=== PATIENT | male | born 1990 | race African-American/Black ===

== ENCOUNTER 2022-05-06 20:40 | Inpatient (IN) | payer MEDICARE, SELFPAY ==
[2022-05-06 21:30] VITALS: BP 113/60; PULSE 72; TEMP 36.8; O2SAT 97
--- NOTE | 2022-05-06 23:08 | PC.ADMIT ---
Patient is a 31 year old single Azeri speaking black male, admitted as a CV admission to after arriving via ambulance from [facility] ED. Patient was evaluated at [facility], medically cleared and deemed in need of IPLOC secondary to homelessness, AH and being off medications for some time. Patient told this mortgage underwriter that he had run out of money and needed to get help so he had the credit card control clerk at the hotel call EMS. Patient said that he has been at [facility] for psychiatric admission but never been on or [facility] [place] health. Patient was somewhat guarded during the admission process and said he was not having any AH, VH, SI or HI. He did sign legals. Safety tool and treatment plan were done and need to be signed. Patient ate a sandwich and chips and went to bed. Orders received.
[2022-05-07 06:00] VITALS: BP 110/59; PULSE 65; RESP 18; TEMP 36.4; O2SAT 99
[2022-05-07 09:23] LABS: Alanine Aminotransferase 15 U/L (0-40); Albumin Level 4.4 g/dL (3.5-5.0); Alkaline Phosphatase 94 U/L (39-117); Anion Gap 11 (12-20); Aspartate Amino Transferase 18 U/L (5-37); Bilirubin Total 0.5 mg/dL (0.0-1.0); Blood Urea Nitrogen 9 mg/dL (9-16); Calcium 9.6 mg/dL (8.4-10.2); Carbon Dioxide 28 mmol/L (22-29); Chloride 106 mmol/L (96-108); Cholesterol 182 mg/dL; Creatinine Clr Calc Pharmacy 139.3; Estimated Glomerular Filt Rate > 60; Glucose Fasting 90 mg/dL (60-99); HDL Cholesterol 35 mg/dL; LDL Cholesterol Calculated 125 mg/dl; Potassium 4.4 mmol/L (3.3-5.1); Sodium 141 mmol/L (135-145); Total Protein 7.6 g/dL (6.5-8.0); Triglycerides 112 mg/dL
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
--- NOTE | 2022-05-07 17:20 | HO.PM.IMCN ---
History of Present Illness Data of Consult Service Date: 05/07/22 Primary Care Provider: None Physician HPI Reason for consult: Admission H&P Pt is a 31-year-old male with a PMH significant for schizophrenia and substance abuse seen for admission history and physical to M5 unit. Not on any known prescription medical medications. Pt refused to be interviewed and examined, saying I'm good and I've already spoken to enough physicians. Pt would not even allow heart and lungs to be auscultated. No known acute concerns at this time. Pt knows to report if he has any acute medical complaints. Review of Systems Review of Systems: Unable to obtain due to patient's refusal of H&P. [facility] Social History Household Members: None Housing: Homeless Do you presently have visiting nurse or other home services: No Patient Tobacco Use Status: Current everyday Tobacco user Tobacco use type: Cigarette Cigarette Packs Per Day: 0.25 Cigarettes Per Day: 5.0 Years Smoked: 20 Smoked in Last 30 Days: Yes e-Cigarette/Vaping Use: Currently Using Frequency of e-Cigarette/Vaping Use: occasionally Patient Interested in Nicotine Replacement: Yes Patient Given Instructions on How to Stop Smoking: Yes Date Education Initiated: 05/06/22 Second Hand Smoke Exposure: Yes Use of substances other than those prescribed or required for medical reasons: Yes Substance Use Type: Crack/Cocaine and Caffiene Substance Use Frequency: Socially Last Used Substance: Just Prior to Admission Currently Displaying Signs/Symptoms of Drug Intoxication Withdrawal: No Any prior treatment program specific to substance use: No Have you been hit, kicked, punched, or otherwise hurt by someone within the past year? If so, by whom?: No Do you feel safe in your current relationship?: No Current Relationship Is there a partner from a previous relationship who is making you feel unsafe now?: No Are you made to feel afraid or neglected: No Spiritual Healthcare Practices: none Episcopalian Healthcare Practices: none Cultural Healthcare Practices: none Advance Directives: No Advance Directives Information Provided: No Do you have thoughts of harming others: None Do you have a plan to hurt others: No Plan Recently lost weight without trying: No Nutrition Risks: No Nutritional Risk Meds Allergies Allergy/AdvReac Type Severity Reaction Status Date / Time Unable to Assess Allergy Unverified 05/06/22 22:34 Active Medications: Current Medications Acetaminophen (Acetaminophen 325 Mg Tablet) 650 mg PO Q6H PRN PRN Reason: Headache/Pain Mild Scale (1-3) Al Hydroxide/Mg Hydroxide (Magnesium Hydrox/Alum Hydrox 30 Ml Oral.Susp) 30 ml PO Q6H PRN PRN Reason: Heartburn/Nausea Aripiprazole (Aripiprazole 5 Mg Tablet) 5 mg PO BEDTIME JOVANNY Hydroxyzine HCl (Hydroxyzine Hcl 25 Mg Tablet) 25 mg PO Q6H PRN PRN Reason: Anxiety Magnesium Hydroxide (Milk Of Magnesia 30 Ml Oral.Susp) 30 ml PO DAILY PRN PRN Reason: Constipation Nicotine Polacrilex (Nicotine Polacrilex 2 Mg Gum) 4 mg BUCCAL Q2H PRN PRN Reason: Nicotine Cravings Trazodone HCl (Trazodone Hcl 50 Mg Tablet) 50 mg PO BEDTIME MRX1 PRN PRN Reason: Insomnia Physical Exam Vital Signs and Narrative: Vital Signs: Last Vital Signs Temp 97.6 F 05/07/22 06:00 Pulse 65 05/07/22 06:00 Resp 18 05/07/22 06:00 BP 110/59 L 05/07/22 06:00 Pulse Ox 99 05/07/22 06:00 O2 Del Method 05/07/22 06:00 BMI result Body Mass Index 0.1 Pt refused examination. Results Labs 05/07/22 08:46 Labs: Laboratory Results - last 24 hr 05/07/22 08:46 Anion Gap 11 L Estim Creat Clear Calc 139.3 Estimated GFR > 60 Fasting Glucose 90 Calcium 9.6 Total Bilirubin 0.5 AST 18 ALT 15 Alkaline Phosphatase 94 Total Protein 7.6 Albumin 4.4 Triglycerides 112 Cholesterol 182 LDL Cholesterol, Calc 125 HDL Cholesterol 35 Assessment and Plan (1) Routine history and physical examination of adult: Status: Acute Plan Pt is a 31-year-old male with a PMH significant for schizophrenia and substance abuse seen for admission history and physical to M5 unit. Not on any known prescription medical medications. Pt refused to be interviewed and examined, saying I'm good and I've already spoken to enough physicians. Pt would not even allow heart and lungs to be auscultated. No known acute concerns at this time. Pt knows to report if he has any acute medical complaints. Thank you for allowing us to participate in the care of this pt. Signing off at this time. Please let us know if there are any acute concerns or questions. Time Spent With Patient Time: Total time managing care of this patient today ____ minutes.
[2022-05-07 18:00] VITALS: BP 122/76; PULSE 85; RESP 16; TEMP 36.4; O2SAT 98
[2022-05-07] MEDS: ARIPiprazole 5 MG TABLET PO (21:02)
[2022-05-08 09:31] VITALS: BP 111/57; PULSE 74; RESP 18; TEMP 36.7; O2SAT 98
--- NOTE | 2022-05-08 12:05 | P.PNPSI_ITS ---
Subjective Subjective Date of Service: 05/08/22 Reason For Visit: Unspecified schizophrenia Interim History: Patient seen. Per nursing, he is isolative, guarded and responding to internal s timuli. When meeting with this database report writer, he appeared guarded and irritable. He said that I am getting some rest and would like to get some rest right now. He was guarded and preoccupied and appeared to be internally stimulated. Review of Systems Review of Systems Unable to obtain due to patient's refusal of H&P. Mental Status Exam Mental Status Exam Narrative: dressed in hospital attire. disheveled. cooperative to his ability. no PMA/PMR. speech decr in amount, incr rate, nml loudness, nml latency. thoughts disorganized, confabulating. affect constricted, normo-intense, non-labile. mood pretty fair. denies SI/SIBI/HI/AVH. Diagnostics Vital Signs (24Hr): Vital Signs - 24 hr 05/08/22 09:31 Temperature 98.0 F Pulse Rate 74 Respiratory Rate 18 Blood Pressure 111/57 L Pulse Oximetry 98 Oxygen Delivery Method Room Air BMI result Body Mass Index 0.1 Labs 05/07/22 08:46 Labs: Laboratory Results - last 48 hr 05/07/22 08:46 Sodium 141 Potassium 4.4 Chloride 106 Carbon Dioxide 28 Anion Gap 11 L BUN 9 Creatinine 0.80 Estim Creat Clear Calc 139.3 Estimated GFR > 60 Fasting Glucose 90 Calcium 9.6 Total Bilirubin 0.5 AST 18 ALT 15 Alkaline Phosphatase 94 Total Protein 7.6 Albumin 4.4 Triglycerides 112 Cholesterol 182 LDL Cholesterol, Calc 125 HDL Cholesterol 35 Medications Medications Current Medications Acetaminophen (Acetaminophen 325 Mg Tablet) 650 mg PO Q6H PRN PRN Reason: Headache/Pain Mild Scale (1-3) Al Hydroxide/Mg Hydroxide (Magnesium Hydrox/Alum Hydrox 30 Ml Oral.Susp) 30 ml PO Q6H PRN PRN Reason: Heartburn/Nausea Aripiprazole (Aripiprazole 5 Mg Tablet) 5 mg PO BEDTIME JOVANNY Last Admin: 05/07/22 21:02 Dose: 5 mg Hydroxyzine HCl (Hydroxyzine Hcl 25 Mg Tablet) 25 mg PO Q6H PRN PRN Reason: Anxiety Magnesium Hydroxide (Milk Of Magnesia 30 Ml Oral.Susp) 30 ml PO DAILY PRN PRN Reason: Constipation Nicotine Polacrilex (Nicotine Polacrilex 2 Mg Gum) 4 mg BUCCAL Q2H PRN PRN Reason: Nicotine Cravings Trazodone HCl (Trazodone Hcl 50 Mg Tablet) 50 mg PO BEDTIME MRX1 PRN PRN Reason: Insomnia Allergies Allergies Allergy/AdvReac Type Severity Reaction Status Date / Time Unable to Assess Allergy Unverified 05/06/22 22:34 Assessment & Plan Assessment & Plan (1) Schizophrenia, paranoid type: Status: Acute Code(s): F20.0 - Paranoid schizophrenia Plan Increase Abilify to 10 mg daily. Reason for contiued inpatient stay Substantial Risk for: inability to function and rapid decompensation Time Spent With Patient Time: Total time managing care of this patient today ____ minutes.
[2022-05-08 19:10] VITALS: BP 125/71; PULSE 80; TEMP 37.1; O2SAT 98
[2022-05-08] MEDS: ARIPiprazole 5 MG TABLET PO (20:47)
--- NOTE | 2022-05-09 11:20 | HO.PSYCHPN ---
Subjective Subjective Date of Service: 05/09/22 Reason For Visit: Unspecified schizophrenia Interim History: Patient seen. Per nursing, he is isolative, guarded and responding to internal stimuli. When meeting with this production underwriter, he appeared guarded. He says he wants to go home and that he feels fine. He was guarded and preoccupied and appeared to be internally stimulated. Review of Systems Review of Systems Unable to obtain due to patient's refusal of H&P. Mental Status Exam Mental Status Exam Narrative: dressed in hospital attire. disheveled. cooperative to his ability. no PMA/PMR. speech decr in amount, incr rate, nml loudness, nml latency. thoughts disorganized, confabulating. affect constricted, normo-intense, non-labile. mood pretty fair. denies SI/SIBI/HI/AVH. Diagnostics Vital Signs (24Hr): Vital Signs - 24 hr 05/09/22 12:30 05/09/22 16:20 Temperature 98.5 F 97.8 F Pulse Rate 79 79 Respiratory Rate 18 Blood Pressure 135/73 114/64 Pulse Oximetry 96 98 Oxygen Delivery Method Room Air Room Air BMI result Body Mass Index 0.1 Labs 05/07/22 08:46 Medications Medications Current Medications Acetaminophen (Acetaminophen 325 Mg Tablet) 650 mg PO Q6H PRN PRN Reason: Headache/Pain Mild Scale (1-3) Al Hydroxide/Mg Hydroxide (Magnesium Hydrox/Alum Hydrox 30 Ml Oral.Susp) 30 ml PO Q6H PRN PRN Reason: Heartburn/Nausea Aripiprazole (Aripiprazole 10 Mg Tablet) 10 mg PO BEDTIME JOVANNY Last Admin: 05/09/22 20:03 Dose: 10 mg Hydroxyzine HCl (Hydroxyzine Hcl 25 Mg Tablet) 25 mg PO Q6H PRN PRN Reason: Anxiety Magnesium Hydroxide (Milk Of Magnesia 30 Ml Oral.Susp) 30 ml PO DAILY PRN PRN Reason: Constipation Nicotine Polacrilex (Nicotine Polacrilex 2 Mg Gum) 4 mg BUCCAL Q2H PRN PRN Reason: Nicotine Cravings Trazodone HCl (Trazodone Hcl 50 Mg Tablet) 50 mg PO BEDTIME MRX1 PRN PRN Reason: Insomnia Allergies Allergies Allergy/AdvReac Type Severity Reaction Status Date / Time Unable to Assess Allergy Unverified 05/06/22 22:34 Assessment & Plan Assessment & Plan (1) Schizophrenia, paranoid type: Status: Acute Code(s): F20.0 - Paranoid schizophrenia Plan Increase Abilify to 10 mg daily. Reason for contiued inpatient stay Substantial Risk for: inability to function and rapid decompensation Time Spent With Patient Time: Total time managing care of this patient today ____ minutes.
[2022-05-09 12:30] VITALS: BP 135/73; PULSE 79; RESP 18; TEMP 36.9; O2SAT 96
[2022-05-09 16:20] VITALS: BP 114/64; PULSE 79; TEMP 36.6; O2SAT 98
[2022-05-09] MEDS: ARIPiprazole 10 MG TABLET PO (20:03)
[2022-05-10 08:44] VITALS: BP 122/81; PULSE 68; RESP 18; TEMP 36.7; O2SAT 98
--- NOTE | 2022-05-10 10:12 | HO.PSYCHPN ---
Subjective Subjective Date of Service: 05/10/22 Reason For Visit: Unspecified schizophrenia Interim History: Met with patient; discussed in team; reviewed admitting/progress notes from weekend Patient reports that he is feeling better and that since getting on Abilify, the auditory hallucinations have been lessened and he is more able to ignore it. He says he has a history of auditory hallucinations that come and go but get worse if he is upset; he says talking also helps. Currently he reports he is sleeping well, eating decent and would like to discharge. He does not want to talk about where he is going to go other than to mention a care home. [employer] discussed with him long-acting Abilify but he declines. He says he takes his medications for while but eventually feels he does not need and stops taking them. Discussed substance abuse history and patient says he does not do cocaine very often but he agrees it does make symptoms worse. Mental Status Exam Mental Status Exam Narrative: Pt is alert and oriented; behavior is cooperative, friendly and calm; mildly disorganized in that he will talk to himself while walking on the halls; patient is not in distress; dressed in hospital attire with unkempt hair and marginal hygiene; mood is described as good...ok and affect congruent; eye contact appropriate; Speech is normal rate, volume and prosody and not pressured; no psychomotor agitation/retardation present; thought process is overall organized and goal directed; Thought content is on discharge; otherwise pertinent to relevant topics and without any delusional content, paranoid ideations or grandiosity; denies any SI/HI. There is no evidence of perceptual disturbance. Patients insight and judgment are impaired, but improved, adequate and likely at baseline Diagnostics Vital Signs (24Hr): Vital Signs - 24 hr 05/09/22 12:30 05/09/22 16:20 05/10/22 08:44 Temperature 98.5 F 97.8 F 98.1 F Pulse Rate 79 79 68 Respiratory Rate 18 18 Blood Pressure 135/73 114/64 122/81 Pulse Oximetry 96 98 98 Oxygen Delivery Method Room Air Room Air Room Air BMI result Body Mass Index 0.1 Labs 05/07/22 08:46 Medications Medications Current Medications Acetaminophen (Acetaminophen 325 Mg Tablet) 650 mg PO Q6H PRN PRN Reason: Headache/Pain Mild Scale (1-3) Al Hydroxide/Mg Hydroxide (Magnesium Hydrox/Alum Hydrox 30 Ml Oral.Susp) 30 ml PO Q6H PRN PRN Reason: Heartburn/Nausea Aripiprazole (Aripiprazole 10 Mg Tablet) 10 mg PO BEDTIME JOVANNY Last Admin: 05/09/22 20:03 Dose: 10 mg Hydroxyzine HCl (Hydroxyzine Hcl 25 Mg Tablet) 25 mg PO Q6H PRN PRN Reason: Anxiety Magnesium Hydroxide (Milk Of Magnesia 30 Ml Oral.Susp) 30 ml PO DAILY PRN PRN Reason: Constipation Nicotine Polacrilex (Nicotine Polacrilex 2 Mg Gum) 4 mg BUCCAL Q2H PRN PRN Reason: Nicotine Cravings Trazodone HCl (Trazodone Hcl 50 Mg Tablet) 50 mg PO BEDTIME MRX1 PRN PRN Reason: Insomnia Allergies Allergies Allergy/AdvReac Type Severity Reaction Status Date / Time Unable to Assess Allergy Unverified 05/06/22 22:34 Assessment & Plan Assessment & Plan (1) Schizophrenia, paranoid type: Status: Acute Code(s): F20.0 - Paranoid schizophrenia Plan per [facility] psychiatry note, pt presented to a hotel outpatient receptionist desk and requested they call EMS for him, which they did.? EMS brought him to the hospital, where he c/o AH.? he was noted to be vague and disorganized, unable to elaborate on his complaints.? per [facility] staff, pt is known to them and has long h/o schizophrenia and poor medication compliance.? he is reportedly homeless.? on interview with MD on unit he is calm and cooperative, to his ability.? he does appear suspicious and is reticent to answer some questions.? his answers to other questions make his formal thought disorder clear and suggest an inability to fully collaborate even if he were willing.? notable things pt stated to this designer writer: I eat food; i'm familiar with aspirin being itself. ? some discussion was able to be had regarding his Dx and medication Hx.? he reported having some experience with abilify and zyprexa.? MD recommended he take one of them or similar, and pt reluctantly agreed, stating he would take abilify.? he agreed to start with 5 mg tonight with expectation of titration to likely somewhere in the 20-30 mg daily range.? on being told his utox is cocaine POS, he responded, coca cola, and then, your utox was cocaine positive, and finally, my detox... it's definitely legal. ? he acknowledged only the use of tobacco, denied any safety issues, and was too disorganized to collaborate in much depth or detail. Past Psychiatric History: hosps: pt reports 2 prior.? on being asked about his most recent, he replies, concurrent. SA: denies SIB: denies Hospital course: 05/10, patient reports symptoms have significantly improved and that AH is lessened and tolerable; mood has improved. Patient is asking for discharge and says I would like to be on my way. He says he will take his medication for a little while but that he usually goes off it eventually. Patient is likely at or near baseline; Will continue to monitor patient and if he remains stable will likely proceed with discharge. PLAN: CV Q 15 minute checks Continue Abilify to 10 mg daily (started on admission; discussed with patient who says that this medication has helped in the past) Patient educated on: diagnosis, medication risk/benefits and substance abuse Informed Consent: understands and further education needed Reason for contiued inpatient stay Substantial Risk for: rapid decompensation Time Spent With Patient Time: Total time managing care of this patient today ____ minutes.
[2022-05-11 08:56] VITALS: BP 128/81; PULSE 73; RESP 18; TEMP 36.6; O2SAT 99
--- NOTE | 2022-05-11 10:13 | P.PNPSI_ITS ---
Subjective Subjective Date of Service: 05/11/22 Reason For Visit: Unspecified schizophrenia Interim History: met with pt; discussed in teams; reviewed notes from [facility] ED (which reported patient asked for help and self presented for treatment for auditory hallucinations, was disorganized) Patient reports that auditory hallucinations remain mostly resolved and otherwise he is able to ignore them. He feels his mood is good-okay and denies any SI or HI. Patient signed 3 day notice; wants to discharge tomorrow. Patient is organized in speech with linear thought process; remains internally preoccupied but otherwise his with organized behavior. Patient says he will continue taking Abilify on discharge. Otherwise no complaints and no requests; thanks global technical writer for help received. Mental Status Exam Mental Status Exam Narrative: Pt is alert and oriented; behavior is cooperative, friendly and calm; patient is not in distress; dressed in hospital attire with unkempt hair and marginal hygiene; mood is described as good...ok and affect congruent; eye contact appropriate; Speech is normal rate, volume and prosody and not pressured; no psychomotor agitation/retardation present; thought process is overall organized, linear and goal directed; Thought content is on discharge; otherwise pertinent to relevant topics and no delusional or paranoid content expressed. He denies any SI/HI. Patient appears internally preoccupied at times but says auditory hallucinations are minimal and able to be ignored. Patients insight and judgment are impaired, but improved, adequate and likely at baseline Diagnostics Vital Signs (24Hr): Vital Signs - 24 hr 05/11/22 08:56 Temperature 97.8 F Pulse Rate 73 Respiratory Rate 18 Blood Pressure 128/81 Pulse Oximetry 99 Oxygen Delivery Method Room Air BMI result Body Mass Index 0.1 Labs 05/07/22 08:46 Medications Medications Current Medications Acetaminophen (Acetaminophen 325 Mg Tablet) 650 mg PO Q6H PRN PRN Reason: Headache/Pain Mild Scale (1-3) Al Hydroxide/Mg Hydroxide (Magnesium Hydrox/Alum Hydrox 30 Ml Oral.Susp) 30 ml PO Q6H PRN PRN Reason: Heartburn/Nausea Aripiprazole (Aripiprazole 10 Mg Tablet) 10 mg PO BEDTIME JOVANNY Last Admin: 05/10/22 21:15 Dose: Not Given Hydroxyzine HCl (Hydroxyzine Hcl 25 Mg Tablet) 25 mg PO Q6H PRN PRN Reason: Anxiety Magnesium Hydroxide (Milk Of Magnesia 30 Ml Oral.Susp) 30 ml PO DAILY PRN PRN Reason: Constipation Nicotine Polacrilex (Nicotine Polacrilex 2 Mg Gum) 4 mg BUCCAL Q2H PRN PRN Reason: Nicotine Cravings Trazodone HCl (Trazodone Hcl 50 Mg Tablet) 50 mg PO BEDTIME MRX1 PRN PRN Reason: Insomnia Allergies Allergies Allergy/AdvReac Type Severity Reaction Status Date / Time Unable to Assess Allergy Unverified 05/06/22 22:34 Assessment & Plan Assessment & Plan (1) Schizophrenia, paranoid type: Status: Acute Code(s): F20.0 - Paranoid schizophrenia Plan HPI: per [facility] psychiatry note, pt presented to a hotel switchboard operator receptionist desk and requested they call EMS for him, which they did.? EMS brought him to the hospital, where he c/o AH.? he was noted to be vague and disorganized, unable to elaborate on his complaints.? per [facility] staff, pt is known to them and has long h/o schizophrenia and poor medication compliance.? he is reportedly homeless.? on interview with MD on unit he is calm and cooperative, to his ability.? he does appear suspicious and is reticent to answer some questions.? his answers to other questions make his formal thought disorder clear and suggest an inability to fully collaborate even if he were willing.? notable things pt stated to this global technical writer: I eat food; i'm familiar with aspirin being itself. ? some discussion was able to be had regarding his Dx and medication Hx.? he reported having some experience with abilify and zyprexa.? MD recommended he take one of them or similar, and pt reluctantly agreed, stating he would take abilify.? he agreed to start with 5 mg tonight with expectation of titration to likely somewhere in the 20-30 mg daily range.? on being told his utox is cocaine POS, he responded, coca cola, and then, your utox was cocaine positive, and finally, my detox ... it's definitely legal. ? he acknowledged only the use of tobacco, denied any safety issues, and was too disorganized to collaborate in much depth or detail. Past Psychiatric History: hosps: pt reports 2 prior.? on being asked about his most recent, he replies, concurrent. SA: denies SIB: denies Hospital course: 05/10, patient reports symptoms have significantly improved and that AH is lessen ed and tolerable; mood has improved. Patient is asking for discharge and says I would like to be on my way. He says he will take his medication for a little while but that he usually goes off it eventually. Patient is likely at or near baseline; Will continue to monitor patient and if he remains stable will likely proceed with discharge. 05/11 Reviewed labs from [facility]: CBC, lytes, BUN/creatinine within normal limits; UA unremarkable; cocaine positive; reviewed ED not which reported patient asked for help and self presented for treatment for auditory hallucinations, was disorganized and with SI. Since coming to the unit and started on Abilify, patient has significantly stabilized. He is organized in speech with linear thought process; he remains internally preoccupied but otherwise his with organized behavior and reports that AH is minimal and tolerable. His mood is much better and he denies depression, or any SI or HI. Patient signed 3 day notice; wants to discharge tomorrow; he says he will continue taking Abilify on discharge. Patient has stabilized and is likely at baseline. Patient has a chronic psychotic illness, chronically struggles with substance abuse and lives a wandering, itinerant lifestyle with a history of limited follow-up. Patient of course remains vulnerable to both relapse and again becoming dysregulated; however these chronic issues will not resolve with longer stay on inpatient unit. Patient is not in imminent risk for harm to self or others and does not meet criteria for involuntary commitment. His request for discharge honored. PLAN: 3 day notice Q 15 minute checks Continue Abilify to 10 mg daily (started on admission; discussed with patient who says that this medication has helped in the past) Patient educated on: diagnosis and medication risk/benefits Informed Consent: understands Reason for contiued inpatient stay Substantial Risk for: stable for discharge Time Spent With Patient Time: Total time managing care of this patient today ____ minutes.
--- NOTE | 2022-05-11 17:20 | PM.PSYDC ---
DS: Providers Provider Date of Service: 05/12/22 Date of admission: 05/06/22 20:40 Date of discharge: 05/12/22 Primary care physician: None Physician Attending physician on admission: Jacob Falk Consults: 05/06/22 10:58 Consult to Hospitalist Routine Consulting Provider: Hospitalist Reason For Exam: Direct admission Attending physician on discharge: Marino Zee DS: Diagnosis Discharge Diagnosis (1) Schizophrenia, paranoid type: Status: Acute Mental Status Exam Mental Status Exam Narrative: Pt is alert and oriented; behavior is cooperative, friendly and calm; patient is not in distress; dressed in hospital attire with unkempt hair and marginal hygiene; mood is described as good and affect congruent; eye contact appropriate; Speech is normal rate, volume and prosody and not pressured; no psychomotor agitation/retardation present; thought process is overall organized, linear and goal directed; Thought content is on discharge; otherwise pertinent to relevant topics and no delusional or paranoid content expressed. He denies any SI/HI. Patient appears internally preoccupied at times but AH minimal and able to be ignored. Patients insight and judgment are impaired, but improved, adequate and likely at baseline Data Data Completed and Pending Completed studies during hospitalization [Text1]: 05/07/22 08:46 Sodium 141 Potassium 4.4 Chloride 106 Carbon Dioxide 28 Anion Gap 11 L BUN 9 Creatinine 0.80 Estim Creat Clear Calc 139.3 Estimated GFR > 60 Fasting Glucose 90 Calcium 9.6 Total Bilirubin 0.5 AST 18 ALT 15 Alkaline Phosphatase 94 Total Protein 7.6 Albumin 4.4 Triglycerides 112 Cholesterol 182 LDL Cholesterol, Calc 125 HDL Cholesterol 35 DS: Summary Hospital Course Hospital Course: HPI: per [facility] psychiatry note, pt presented to a hotel receptionist doctor's office desk and requested they call EMS for him, which they did.? EMS brought him to the hospital, where he c/o AH.? he was noted to be vague and disorganized, unable to elaborate on his complaints.? per [facility] staff, pt is known to them and has long h/o schizophrenia and poor medication compliance.? he is reportedly homeless; formal thought disorder present and notable things said were I eat food; i'm familiar with aspirin being itself... ? on being told his utox is cocaine POS, he responded, coca cola, and then to your utox was cocaine positive, he said my detox... it's definitely legal. ?Pt reluctantly agreed, to take abilify.? SA: denies; SIB: denies Hospital course: on Abilify, patient reports symptoms have significantly improved and that AH is lessened and tolerable; mood has improved. Patient is asking for discharge and says I would like to be on my way. He says he will take his medication for a little while but that he usually goes off it eventually. Patient is likely at or near baseline; Will continue to monitor patient and if he remains stable will likely proceed with discharge. Pt remained stable and returned to his likely baseline. He asks for discharge and signed a 3 day notice. Patient has demonstrated good behavioral and impulse control throughout his time in the unit; mostly kept himself. Since coming to the unit and taking Abilify, patient has significantly stabilized. He is organized in speech with linear thought process; he remains internally preoccupied but otherwise his with organized behavior and reports that AH is minimal and tolerable. His mood is much better and he denies depression, or any SI or HI. Pt asks to discharge tomorrow and he says he will continue taking Abilify on discharge. Given that patient has a chronic psychotic illness, chronically struggles with substance abuse and lives a wandering, itinerant lifestyle with a history of limited follow-up, patient of course remains vulnerable to both relapse and again becoming dysregulated; however these chronic issues will not resolve with longer stay on inpatient unit. Patient is not in imminent risk for harm to self or others and does not meet criteria for involuntary commitment. His request for discharge honored. Time spent discussing smoking cessation with patient: 3 to 10 minutes Status at Discharge Functional status at discharge: independent ambulation Overall status at discharge: patient is back to baseline Time Spent with Patient Time attestation: Total time managing care of this patient today ____ minutes. Time spent: Less than 30 minutes Discharge Plan Discharge Anticipated Discharge Date/Time: 05/12/22 11:30 Patient Disposition: Home, Self-Care Discharge Diagnosis: Schizophrenia Referrals: [facility] [Other] (Walk in if needed) Discharge Medications: New aripiprazole 10 mg Tablet 10 mg PO DAILY 30 Days Qty: 30 1RF Discharge Orders: Discharge Order (Routine); Ordered 05/12/22 Ordered By: Marino Yayo Diet: Regular diet Activity on Discharge: As tolerated Stand Alone Forms: Patient Portal Discharge page Care Plan Goals: Maintain mood and safe behaviors Take medications as prescribed Continue to pursue sobriety Practice coping skills Continue with outpatient providers and reach out to them as needed Health Concerns: Mood stability and behaviors Sobriety Plan of Treatment: Follow up with your Psychiatric provider and other outpatient providers regarding above concerns Take medications as prescribed Assessment: Risk assessment at time of discharge:? Patient was interviewed prior to discharge and found to be fully oriented and without any SI or HI. Patient has insight and demonstrates good judgment in terms of wanting to pursue treatment. Patient is not in imminent risk of harm to self or others and has a safety plan that includes presenting to the closest ER or calling 911 if feeling unsafe.? Patient has been observed closely by nursing and unit staff throughout admission; patient has not engaged in any behaviors that suggest dangerousness to self or others and has demonstrated appropriate behaviors and impulse control
[2022-05-11 19:41] VITALS: BP 131/80; PULSE 71
[2022-05-12 09:09] VITALS: BP 124/77; PULSE 73; RESP 18; TEMP 36.6; O2SAT 98
== END 2022-05-12 11:38 | disposition home or self-care (01) | DRG 885 ==
PROVIDERS: Psychiatry & Neurology Psychiatry; Admitting Provider Psychiatry & Neurology Psychiatry; Visit Provider Psychiatry & Neurology Psychiatry
DX: F20.0 Paranoid schizophrenia (principal); F17.210 Nicotine dependence, cigarettes, uncomplicated; Z71.6 Tobacco abuse counseling; F14.10 Cocaine abuse, uncomplicated; Z79.899 Other long term (current) drug therapy
CPT/HCPCS: 36415; 80053; 80061

== ENCOUNTER 2023-01-18 14:22 | Inpatient (IN) | payer MEDICARE, SELFPAY ==
--- OUTSIDE RECORDS SUMMARY | 2023-01-18 14:24 | XMS_ITS | Continuity of Care Document ---
Author Name Unknown Organization [facility] ter Address [address] [place] [id number]- Care Team Providers Care Mill Operator Head Name Role Phone Urban GARNER, Maxx Primary Care Physician [phone] Encounter [facility] Date(s): 06/11/22 - 06/12/[address] [address]- Discharge Disposition: A-D/C Home Attending Physician: Hiram Mason MD, Marzena Admitting Physician: Hiram Mason MD, Marzena Referring Physician: Not on Staff, Referring MD Allergies, Adverse Reactions, Alerts Substance Reaction Severity Status Bee Stings Active Immunizations Given and Recorded Vaccine Date Status Refusal Reason influenza virus vaccine, inactivated 1 12/18/18 Gi neo influenza virus vaccine, inactivated 2 12/18/18 Gi neo Fluzone (oldterm) 3 04/13/11 Given tetanus-diphtheria toxoids (Td) 4 04/13/11 Given 1Result Comment: pt handled procedure well with no complaints. [facility]: [id number] 2Result Comment: pt handled procedure well with no complaints. [place]: [id number] 3Admin Note: vis given 4Admin Note: VIS GIVEN 01/30/2008 Medications Azithromycin 5 Day Dose Pack 250 mg oral tablet = 250 mg, By Mouth, Daily, 2 po qd x1 day, then 1 po qdaily x4 days, # 6 tablet, 0 Refills, Maintenance, 05/03/20 14:17:00 EST, Partial fill upon patient request if the prescription is for a scheduleII opioid drug. Start Date: 05/03/20 Status: Ordered benztropine 0.5 mg oral tablet 0.5 mg, 1, tablet, By Mouth, 2 times a day, # 28 tablet, Refills 0, Tot. Refills 0, Maintenance, 01/08/20 13:33:00 EDT, Route to Pharmacy Electronically, [facility] #[id number], 170, cm, 12/18/18 16:20:00 EDT, Height Start Date: 01/08/20 Stop Date: 01/22/20 Status: Ordered divalproex sodium 500 mg oral tablet, extended release 1 tablet = 500 mg, By Mouth, Daily at bedtime, Maintenance, 05/06/22 11:06:00 EST, Partial fill upon patient request if the prescription is for a schedule II opioid drug. Start Date: 05/06/22 Status: Ordered doxycycline hyclate 100 mg oral tablet 1 tablet = 100 mg, By Mouth, 2 times a day, # 20 tablet, 0 Refills, Maintenance, 05/03/20 14:17:00 EST, Partial fill upon patient request if the prescription is for a schedule II opioid drug. Start Date: 05/03/20 Stop Date: 05/13/20 Status: Ordered haloperidol 2 mg oral tablet 2 mg, 1, tablet, By Mouth, 2 times a day, # 28 tablet, Refills 0, Tot. Refills 0, Maintenance, 01/08/20 13:33:00 EDT, Route to Pharmacy Electronically, [facility] #[id number], 170, cm, 12/18/18 16:20:00 EDT, Height Start Date: 01/08/20 Stop Date: 01/22/20 Status: Ordered olanzapine 5 mg oral tablet, disintegrating 1 tablet = 5 mg, By Mouth, Daily, Maintenance, 05/06/22 11:06:00 EST, DIS Tablet, Partial fill uponpatient request if the prescription is for a schedule II opioid drug. Start Date: 05/06/22 Status: Ordered Problem List Condition Confirmation Course Effective Dates Status Health St atus Informant Bipolar disorder Confirmed Active Cannabis use disorder, mild, abuse Confirmed Active Depressive disorder Confirmed Active Nicotine use disorder Confirmed Active Schizophrenia, unspecified Confirmed Active Vital Signs Most recent to oldest [Reference Range]: 1 2 3 Oxygen Saturation [94-100 %] 99 % (06/12/22 6:49 AM) 98 % (06/12/22 2:43 AM) 98 % (06/11/22 10:34 PM) Pulse Rate [55-90 bpm] 77 bpm (06/12/22 6:49 AM) 82 bpm (06/12/22 2:43 AM) 78 bpm (06/11/22 10:34 PM) Blood Pressure [90-138/55-84 mm Hg] 118/74mm Hg (06/12/22 6:49 AM) 112/78mm Hg (06/12/22 2:43 AM) 110/67mm Hg (06/11/22 10:34 PM) Respiratory Rate [16-30 br/min] 18 br/min (06/12/22 6:49 AM) 18 br/min (06/12/22 2:43 AM) 18 br/min (06/11/22 10:34 PM) Temperature [96.8-100.4 DegF] 97.8 DegF (06/11/22 10:34 PM) Mode of Delivery (Oxygen) Room air (06/12/22 6:49 AM) Room air (06/12/22 2:43 AM) Room air (06/11/22 10:34 PM) Temperature Route Oral (06/11/22 10:34 PM) Social History Social History Type Response Tobacco Use: 4 or less cigar ettes(less than 1/4 pack)/day in last 30 days. Other: pt smoke 1 cigarette a day in the evening. Sex Patient Care team information Care Team Personnel Name: Elly Freed Position: [facility] Outreach Member Role: Lifetime Consulting Physician Name: Alejandro Duggan MD Position: [facility] Primary Care Physician Member Role: PCP Address: Address: [address] [place] [address] Adult & Pediatric Medicine [address] Name: David GARNER, Angie Smith Position: [facility] Resident Member Role: Chart Review Address: Address: [address] [place] [address] Dept Of Anesthesiology [address] Name: Sunshine Harper Position: [facility] ED RN W/OE and Tasks Member Role: Patient Care Provider Name: Marzena Griffiths MD Position: [facility] ED Medicine MD Member Role: ED Attending Physician Address: Address: [address] [place] [address] Care Team Related Persons Name: MICHAEL BROCK Address: home [address] [place] [address] Name: LUISANA BROCK Name: NOONE, ATTHISTIME
--- OUTSIDE RECORDS SUMMARY | 2023-01-18 14:24 | XMS_ITS | Continuity of Care Document ---
Author Name Unknown Organization [facility] ter Address [address] [place] [id number]- Care Team Providers Care Steel Construction Worker Name Role Phone Maxx Duggan MD Primary Care Physician [place] [facility] [place](s): 04/30/20 - 05/01/[address] [address]- Encounter Diagnosis Lymphadenopathy(Final) - 05/01/20 Discharge Disposition: A-D/C Home Attending Physician: Artis Villa DO Admitting Physician: Artis Villa DO Referring Physician: Not on Staff, Referring MD Allergies, Adverse Reactions, Alerts Substance Reaction Severity Status Bee Stings Active Immunizations Given and Recorded Vaccine Date Status Refusal Reason influenza virus vaccine, inactivated 1 12/18/18 Gi neo influenza virus vaccine, inactivated 2 12/18/18 Gi neo Fluzone (oldterm) 3 04/13/11 Given tetanus-diphtheria toxoids (Td) 4 04/13/11 Given 1Result Comment: pt handled procedure well with no complaints. nd: [id number] 2Result Comment: pt handled procedure well with no complaints[place]: [id number] 3Admin Note: vis given 4Admin Note: VIS GIVEN 01/30/2008 Medications benztropine 0.5 mg oral tablet 0.5 mg, 1, tablet, By Mouth, 2 times a day, # 28 tablet, Refills 0, Tot. Refills 0, Maintenance, 01/08/20 13:33:00 EDT, Route to Pharmacy Electronically, [facility] #[id number], 170, cm, 12/18/18 16:20:00 EDT, Height Start Date: 01/08/20 Stop Date: 01/22/20 Status: Ordered haloperidol 2 mg oral tablet 2 mg, 1, tablet, By Mouth, 2 times a day, # 28 tablet, Refills 0, Tot. Refills 0, Maintenance, 01/08/20 13:33:00 EDT, Route to [facility], [facility][id number], 170, cm, 12/18/18 16:20:00 EDT, Height Start Date: 01/08/20 Stop Date: 01/22/20 Status: Ordered MorPHINE Inj 4 mg, Injection, IV Push Slowly, Every 5 minutes for 3 doses/times, PRN for Pain , Moderate, and SBP greater than 100, Routine, 04/30/20 21:38:00 EST, Stop date Limited # of times Start Date: 04/30/20 Stop Date: 05/01/20 Status: Discontinued Problem List Condition Effective Dates Status Health Status Inform ant Bipolar disorder(Confirmed) Active Cannabis use disorder, mild, abuse(Confirmed) Active Depressive disorder(Confirmed) Active Nicotine use disorder(Confirmed) Active Schizophrenia, unspecified(Confirmed) Active Vital Signs Most recent to oldest [Reference Range]: 1 2 Oxygen Saturation [94-100 %] 98 % (04/30/20 7:27 PM) 96 % (04/30/20 7:23 PM) Pulse Rate [55-90 bpm] 91 bpm *H* (04/30/20 7:27 PM) 104 bpm *H* (04/30/20 7:23 PM) Blood Pressure [90-138/55-84 mm Hg] 120/ 82mm Hg (04/30/20 7:27 PM) Respiratory Rate [16-30 br/min] 18 br/mi n (04/30/20 10:08 PM) 18 br/min (04/30/20 7:27 PM) Temperature [96.8-100.4 DegF] 98.4 DegF (04/30/20 7:27 PM) Mode of Delivery (Oxygen) Room air (04/30/20 7:27 PM) Room air (04/30/20 7:23 PM) Blood pressure sites Arm, right (04/30/20 7:27 PM) Temperature Route Oral (04/30/20 7:27 PM) Social History Social History Type Response Tobacco Use: 4 or less cigar ettes(less than 1/4 pack)/day in last 30 days. Other: pt smoke 1 cigarette a day in the evening. Sex
--- OUTSIDE RECORDS SUMMARY | 2023-01-18 14:24 | XMS_ITS | Continuity of Care Document ---
Author Name Unknown Organization [facility] ter Address [address] [place] [address]- Care Team Providers Care Assistant Professor Of Life Sciences Name Role Phone Alejandro Duggan MD Primary Care Physician [place] [facility] [place] Date(s): 05/06/22 - 05/06/[address] [address]- Encounter Diagnosis Psychosis(Final) - 05/06/22 Discharge Disposition: A-D/C Home Attending Physician: Karen Barone MD Admitting Physician: Karen Barone MD Referring Physician: Not on Staff, Referring MD [...] handled procedure well with no complaints. nd: [id number] 2Result Comment: pt handled procedure well with no complaints. VP MARKETING [place]: [id number] 3Admin Note: vis given 4Admin Note: VIS [...] 01/08/20 13:33:00 EDT, Route to Pharmacy Electronically, [facility][id number], 170, cm, 12/18/18 16:20:00 EDT, Height Start [...] 01/08/20 13:33:00 EDT, Route to Pharmacy Electronically, [facility] #[id number], 170, cm, 12/18/18 16:20:00 EDT, Height Start [...] to oldest [Reference Range]: 1 2 3 Height 170 cm (05/06/22 9:38 AM) 170 cm (05/06/22 2:22 AM) Weight 75 kg (05/06/22 9:38 AM) 75 kg (05/06/22 2:22 AM) Oxygen Saturation [94-100 %] 99 % (05/06/22 7:17 PM) 95 % (05/06/22 9:38 AM) 100 % (05/06/22 2:30 AM) Pulse Rate [55-90 bpm] 69 bpm (05/06/22 7:17 PM) 84 bpm (05/06/22 9:38 AM) 80 bpm (05/06/22 2:30 AM) Body Mass Index [18.5-24.99 kg/m2] 25.95 kg/m2 *H* (05/06/22 9:38 AM) Blood Pressure [90-138/55-84 mm Hg] 115/61mm Hg (05/06/22 7:17 PM) 108/76mm Hg (05/06/22 9:38 AM) 120/69mm Hg (05/06/22 2:30 AM) Respiratory Rate [16-30 br/min] 18 br/min (05/06/22 7:17 PM) 16 br/min (05/06/22 9:38 AM) Temperature [96.8-100.4 DegF] 98.0 DegF (05/06/22 7:17 PM) 98.6 DegF (05/06/22 2:30 AM) Mode of Delivery (Oxygen) Room air (05/06/22 7:17 PM) Blood pressure sites Arm, right (05/06/22 7:17 PM) Temperature Route Oral (05/06/22 7:17 PM) Oral (05/06/22 2:30 AM) Dry Weight 75 kg (05/06/22 9:38 AM) 75 kg (05/06/22 2:22 AM) Social History Social History Type Response Tobacco Use: 4 or less cigar ettes(less than 1/4 pack)/day in last 30 days. Other: pt smoke 1 cigarette a day in the evening. Sex Patient Care team information Care Team Personnel Name: Elly Freed Position: [facility] Outreach Member Role: Lifetime Consulting Physician Name: Alejandro Duggan MD Position: [facility] Primary Care Physician Member Role: PCP Address: Address: [address] [place] [address] Adult & Pediatric Medicine [place], [place] [address] Name: *[facility], ED Attending Position: [facility] ED Attendings Patient Name: Stacey Heath Position: [facility] ED RN W/OE and Tasks Member Role: Patient Care Provider Name: Karen Barone MD Position: [facility] ED Medicine MD Member Role: Admitting Physician Address: Address: [address] [place] [address]- Name: Tiffany Cespedes Position: [facility] ED TA [facility] Member Role: Patient Care Provider Name: Noemi Browning RN Position: [facility] ED RN W/OE and Tasks Member Role: Patient Care Provider Care Team Related Persons Name: MICHAEL MARIO Address: home [address] [place] [address] Name: SHARONDA HAMPTON
--- OUTSIDE RECORDS SUMMARY | 2023-01-18 14:24 | XMS_ITS | Continuity of Care Document ---
Author Name Unknown Organization [facility] ter Address [address] [place] [address]- Care Team Providers Care Record Producer Name Role Phone Urban GARNER, [facility] Primary Care Physician [phone] [place] [facility] [place] - 10/23/[address] [address]- Discharge Disposition: A-D/C Walkout Attending Physician: Not on Staff, Attending MD Admitting Physician: Not on Staff, Admitting MD Referring Physician: Not on Staff, Referring [...] pt handled procedure well with no complaints. [facility]: [id number] 2Result Comment: pt handled procedure well with no complaints. [place]NAGER [place]ERTY [place]: [id number] 3Admin Note: vis given 4Admin Note: VIS [...] 01/08/20 13:33:00 EDT, Route to Pharmacy Electronically, [facility] #[id number], 170, cm, 12/18/18 16:20:00 EDT, Height Start Date: 01/08/20 Stop Date: 01/22/20 Status: Ordered doxycycline hyclate 100 mg oral [...] 01/08/20 13:33:00 EDT, Route to Pharmacy Electronically, [facility] #[id number], 170, cm, 12/18/18 16:20:00 EDT, Height Start Date: 01/08/20 Stop Date: 01/22/20 Status: Ordered Problem List Condition Effective Dates Status Health Status Inform ant Bipolar disorder(Confirmed) Active Cannabis use disorder, mild, abuse(Confirmed) Active Depressive disorder(Confirmed) Active Nicotine use disorder(Confirmed) Active Schizophrenia, unspecified(Confirmed) Active Social History Social History Type Response Tobacco Use: 4 or less cigar ettes(less than 1/4 pack)/day in last 30 days. Other: pt smoke 1 cigarette a day in the evening. Sex
--- OUTSIDE RECORDS SUMMARY | 2023-01-18 14:24 | XMS_ITS | Continuity of Care Document ---
Author Name Unknown Organization [facility] Address [address] [place] [address]- Care Team Providers Care Parts Cleaner Name Role Phone Alejandro Duggan MD Primary Care Physician [phone] [place] [facility] [place]/21 [facility] [address] [place], [place] [address] Attending Physician: Evelin VINSON, [place] Referring Physician: Alejandro Duggan MD Allergies, Adverse Reactions, Alerts Substance Reaction Severity Status Bee Stings Active Immunizations Given and Recorded Vaccine Date Status Refusal Reason influenza virus vaccine, inactivated 1 12/18/18 Gi neo influenza virus vaccine, inactivated 2 12/18/18 Gi neo Fluzone (oldterm) 3 04/13/11 Given tetanus-diphtheria toxoids (Td) 4 04/13/11 Given 1Result Comment: pt handled procedure well with no complaints. [facility]: [id number] 2Result Comment: pt handled procedure well with no complaints. [place] OPERATOR [place]: [id number] 3Admin Note: vis given 4Admin Note: VIS [...] 01/08/20 13:33:00 EDT, Route to Pharmacy Electronically, [facility] #[id number], 170, cm, 12/18/18 16:20:00 EDT, Height Start [...] 01/08/20 13:33:00 EDT, Route to Pharmacy Electronically, [facility] #[id number], 170, cm, 12/18/18 16:20:00 EDT, Height Start [...]
--- OUTSIDE RECORDS SUMMARY | 2023-01-18 14:24 | XMS_ITS | Continuity of Care Document ---
Author Name Unknown Organization [facility] ter Address [address] [place] [address]- Care Team Providers Care Real Estate Development Manager Name Role Phone Urban GARNER, [facility] Primary [facility] Physician [place] [facility] [place] 06/22/20 - 06/22/[address] [address]- Discharge Disposition: A-D/C Walkout Attending Physician: Not [...] pt handled procedure well with no complaints. [facility]: [id number] 2Result Comment: pt handled procedure well with no complaints. MARINE ELECTRICIAN HELPER [place]: [id number] 3Admin Note: vis given 4Admin Note: VIS [...] 01/08/20 13:33:00 EDT, Route to Pharmacy Electronically, [facility] #[id number], 170, cm, 12/18/18 16:20:00 EDT, Height Start [...] 01/08/20 13:33:00 EDT, Route to Pharmacy Electronically, [facility] #[id number], 170, cm, 12/18/18 16:20:00 EDT, Height Start Date: 01/08/20 Stop Date: 01/22/20 Status: Ordered Problem List Condition Effective Dates Status Health Status Inform ant Bipolar disorder(Confirmed) Active Cannabis use disorder, mild, abuse(Confirmed) Active Depressive disorder(Confirmed) Active Nicotine use disorder(Confirmed) Active Schizophrenia, unspecified(Confirmed) Active Vital Signs Most recent to oldest [Reference Range]: 1 Oxygen Saturation [94-100 %] 98 % (06/22/20 4:09 AM) Pulse Rate [55-90 bpm] 86 bpm (06/22/20 4:09 AM) Blood Pressure [90-138/55-84 mm Hg] 143/ 80mm Hg *H* (06/22/20 4:09 AM) Respiratory Rate [16-30 br/min] 16 br/mi n (06/22/20 4:09 AM) Temperature [96.8-100.4 DegF] 98 DegF (06/22/20 4:09 AM) Mode of Delivery (Oxygen) Room air (06/22/20 4:09 AM) Blood pressure sites Arm, right (06/22/20 4:09 AM) Temperature Route Oral (06/22/20 4:09 AM) Social History Social History Type Response Tobacco Use: 4 or less cigar ettes(less than 1/4 pack)/day in last 30 days. Other: pt smoke 1 cigarette a day in the evening. Sex
--- OUTSIDE RECORDS SUMMARY | 2023-01-18 14:24 | XMS_ITS | Continuity of Care Document ---
Author Name Unknown Organization [facility] Address [address] [place] [address]- Care Team Providers Care Deaf/Hard Of Hearing Specialist Name Role Phone Urban GARNER, Alejandro Primary Care Physician [phone] [place] [facility] [place](s): 05/22/21 - 06/21/21 [facility] [address] [place], [place] [address] Allergies, Adverse Reactions, Alerts Substance Reaction Severity Status Bee Stings Active Immunizations Given and Recorded Vaccine Date Status Refusal Reason influenza virus vaccine, inactivated 1 12/18/18 Gi neo influenza virus vaccine, inactivated 2 12/18/18 Gi neo Fluzone (oldterm) 3 04/13/11 Given tetanus-diphtheria toxoids (Td) 4 04/13/11 Given 1Result Comment: pt handled procedure well with no complaints. [facility]: [id number] 2Result Comment: pt handled procedure well with no complaints. SUPERVISOR HOME ENERGY CONSULTANT ND: [id number] 3Admin Note: vis given 4Admin Note: VIS [...] 01/08/20 13:33:00 EDT, Route to Pharmacy Electronically, [id number], 170, cm, 12/18/18 16:20:00 EDT, Height Start [...] 01/08/20 13:33:00 EDT, Route to Pharmacy Electronically, [facility] #[id number], 170, cm, 12/18/18 16:20:00 EDT, Height Start [...]
--- OUTSIDE RECORDS SUMMARY | 2023-01-18 14:25 | XMS_ITS | Continuity of Care Document ---
Author Name Unknown Organization [facility] ter Address [address] [place] [address]- Care Team Providers Care Automatic Paint Sprayer Operator Name Role Phone Urban GARNER, [facility] Primary Care Physician [place] [facility] [place] Date(s): 04/29/21 - 04/29/[address] [address]- Discharge Disposition: A-D/C Walkout Attending Physician: Not [...] well with no complaints. [facility]: [id number] 2Result Comment: pt handled procedure well with no complaints. [place]: [id number] 3Admin Note: vis given 4Admin Note: VIS [...] 01/08/20 13:33:00 EDT, Route to Pharmacy Electronically, [id number], 170, cm, 12/18/18 16:20:00 EDT, Height Start [...] 01/08/20 13:33:00 EDT, Route to Pharmacy Electronically, [facility] #[id number], 170, cm, 12/18/18 16:20:00 EDT, Height Start Date: 01/08/20 Stop Date: 01/22/20 Status: Ordered Problem List Condition Effective Dates Status Health Status Inform ant Bipolar disorder(Confirmed) Active Cannabis use disorder, mild, abuse(Confirmed) Active Depressive disorder(Confirmed) Active Nicotine use disorder(Confirmed) Active Schizophrenia, unspecified(Confirmed) Active Vital Signs Most recent to oldest [Reference Range]: 1 Oxygen Saturation [94-100 %] 98 % (04/29/21 10:32 AM) Pulse Rate [55-90 bpm] 100 bpm *H* (04/29/21 10:32 AM) Mode of Delivery (Oxygen) Room air (04/29/21 10:32 AM) Social History Social History Type Response Tobacco Use: 4 or less cigar ettes(less than 1/4 pack)/day in last 30 days. Other: pt smoke 1 cigarette a day in the evening. Sex
--- OUTSIDE RECORDS SUMMARY | 2023-01-18 14:25 | XMS_ITS | Continuity of Care Document ---
Author Name Unknown Organization [facility] ter Address [address] [place] [address]- Care Team Providers Care Soft Sugar Supervisor Name Role Phone Alejandro Duggan MD Primary Care Physician Encounter [facility] Date(s): 11/07/19 - 11/12/[address] [address]- [facility] Encounter Diagnosis Suicidal ideation(Final) - 11/07/19 Discharge Disposition: A-D/C Home Attending Physician: Miya Guy MD Admitting Physician: Miya Guy MD Referring Physician: Not on Staff, Referring [...] pt handled procedure well with no complaints. [facility]: [phone] 2Result Comment: pt handled procedure well with no complaints. [place] CLE[place]ER [place]: [id number] 3Admin Note: vis given 4Admin Note: VIS GIVEN 01/30/2008 Medications No Known Medications Problem List Condition Effective Dates Status Health Status Inform ant Bipolar disorder(Confirmed) Active Cannabis use disorder, mild, abuse(Confirmed) Active Depressive disorder(Confirmed) Active Nicotine use disorder(Confirmed) Active Schizophrenia, unspecified(Confirmed) Active Vital Signs Most recent to oldest [Reference Range]: 1 2 3 Oxygen Saturation [94-100 %] 99 % (11/12/19 4:40 PM) 97 % (11/12/19 2:35 PM) 100 % (11/12/19 4:38 AM) Pulse Rate [55-90 bpm] 82 bpm (11/12/19 4:40 PM) 59 bpm (11/12/19 2:35 PM) 64 bpm (11/12/19 4:38 AM) Blood Pressure [90-138/55-84 mm Hg] 128/72mm Hg (11/12/19 4:40 PM) 106/55mm Hg (11/12/19 2:35 PM) 111/70mm Hg (11/12/19 4:38 AM) Respiratory Rate [16-30 br/min] 17 br/min (11/12/19 4:40 PM) 18 br/min (11/12/19 2:35 PM) 20 br/min (11/12/19 4:38 AM) Temperature [96.8-100.4 DegF] 98.0 DegF (11/12/19 2:35 PM) 97.9 DegF (11/11/19 9:11 PM) 98.1 DegF (11/11/19 1:59 PM) Mode of Delivery (Oxygen) Room air (11/12/19 4:40 PM) Room air (11/12/19 2:35 PM) Room air (11/12/19 4:38 AM) Blood pressure sites Arm, right (11/12/19 4:40 PM) Arm, right (11/12/19 2:35 PM) Arm, left (11/12/19 4:38 AM) Temperature Route Oral (11/12/19 2:35 PM) Oral (11/11/19 9:11 PM) Oral (11/11/19 1:59 PM) Social History Social History Type Response Tobacco Use: 4 or less cigar ettes(less than 1/4 pack)/day in last 30 days. Other: pt smoke 1 cigarette a day in the evening. Sex
--- OUTSIDE RECORDS SUMMARY | 2023-01-18 14:25 | XMS_ITS | Continuity of Care Document ---
Author Name Unknown Organization [facility] Address [address] [place] [address]- Care Team Providers Care Lapel Padder Name Role Phone Alejandro Duggan MD Primary Care Physician [place] [facility] [place](s): 06/01/21 - 06/08/21 [facility] [address] [place], [place] [address] Attending Physician: Alejandro Duggan MD Allergies, Adverse Reactions, Alerts Substance Reaction Severity Status Bee Stings Active Immunizations Given and Recorded Vaccine Date Status Refusal Reason influenza virus vaccine, inactivated 1 12/18/18 Gi neo influenza virus vaccine, inactivated 2 12/18/18 Gi neo Fluzone (oldterm) 3 04/13/11 Given tetanus-diphtheria toxoids (Td) 4 04/13/11 Given 1Result Comment: pt handled procedure well with no complaints. nd: [id number] 2Result Comment: pt handled procedure well with no complaints. MACHINE ATTENDANT [place]: [id number] 3Admin Note: vis given 4Admin Note: VIS [...] 01/08/20 13:33:00 EDT, Route to Pharmacy Electronically, [facility] #[id number], 170, cm, 12/18/18 16:20:00 EDT, Height Start [...] 01/08/20 13:33:00 EDT, [id number], 170, cm, 12/18/18 16:20:00 EDT, Height Start [...]
--- OUTSIDE RECORDS SUMMARY | 2023-01-18 14:25 | XMS_ITS | Continuity of Care Document ---
Author Name Unknown Organization [facility] ter Address [address] [place] [address]- Care Team Providers Care Workers Compensation Analyst Name Role Phone Alejandro Duggan MD Primary Care Physician Encounter [facility] [place] Date(s): 10/24/22 - 10/25/[address] [address]- Encounter Diagnosis Schizophrenia(Final) - 10/25/22 Cocaine use(Final) - 10/25/22 Delusional ideas(Final) - 10/25/22 Discharge Disposition: Transfer to [facility] Facility Attending Physician: Michael Rosenberg MD Admitting Physician: Michael Rosenberg MD Referring Physician: Not on Staff, Referring [...] handled procedure well with no complaints. nd: [id number] 2Result Comment: pt handled procedure well with no complaints. FISH AND WILDLIFE TECHNICIAN ND: [id number] 3Admin Note: vis given 4Admin Note: VIS [...] 01/08/20 13:33:00 EDT, Route to Pharmacy Electronically, [facility] #[id number], 170, cm, 12/18/18 16:20:00 EDT, Height Start [...] 01/08/20 13:33:00 EDT, Route to Pharmacy Electronically, [facility] #[id number], 170, cm, 12/18/18 16:20:00 EDT, Height Start [...] 1 2 3 Oxygen Saturation [94-100 %] 100 % (10/25/22 12:15 PM) 96 % (10/24/22 6:49 PM) 95 % (8/13/23 4:36 PM) Pulse Rate [55-90 bpm] 76 bpm (10/25/22 12:15 PM) 88 bpm (10/24/22 6:49 PM) 95 bpm *H* (10/24/22 4:36 PM) Blood Pressure [90-138/55-84 mm Hg] 112/59mm Hg (10/25/22 12:15 PM) 124/78mm Hg (10/24/22 6:49 PM) 123/77mm Hg (10/24/22 4:36 PM) Respiratory Rate [16-30 br/min] 16 br/min (10/25/22 12:15 PM) 18 br/min (10/24/22 6:49 PM) 18 br/min (10/24/22 4:36 PM) Temperature [96.8-100.4 DegF] 97.8 DegF (10/25/22 12:15 PM) 98.2 DegF (10/24/22 6:49 PM) 98.1 DegF (10/24/22 4:36 PM) Mode of Delivery (Oxygen) Room air (10/25/22 12:15 PM) Room air (10/24/22 6:49 PM) Room air (10/24/22 4:36 PM) Blood pressure sites Arm, right (10/25/22 12:15 PM) Arm, right (10/24/22 6:49 PM) Arm, right (10/24/22 4:36 PM) Temperature Route Oral (10/25/22 12:15 PM) Oral (10/24/22 6:49 PM) Oral (10/24/22 4:36 PM) Social History Social History Type Response Tobacco Use: 4 or less cigar ettes(less than 1/4 pack)/day in last 30 days. Other: pt smoke 1 cigarette a day in the evening. Sex Consult note * Edvin Vargas DO: PERFORM Event Display: Consultation Note Authored Date: [id number] Patient: ??BRIAN BROCK ? Age:??32 Years?Sex:??Male?:??1990? Extensive chart review was performed, and case discussed with treatment team.? In brief, this is a??32-year-old gentleman with past psychiatric history significant for schizophrenia, posttraumatic stress disorder, and prior inpatient psychiatric hospitalizations for treatment of the same, who initially presented to [facility] on 10/24/2022 for evaluation of worsening auditory hallucinations, bizarre delusions, and cocaine/stimulant withdrawal. At this point in time, the patient has been medically cleared and referred to [facility] for evaluation and assistance with disposition for [place] for later this afternoon, 10/25/2022 for inpatient psychiatric stabilization.?The emergency psychiatry service was consulted for evaluation of medication management. On review of the external Rx history, the patient was most recently on Abilify 10 mg daily back in 05/11/2022, and prior to this, on Depakote ER 250 mg daily, and Zyprexa ODT 5 mg daily back in 06/15/2021.?? Given that the patient has not been on any scheduled neuroleptic agents in some time (~6 months), will restart Zyprexa 5 mg PO daily as per my last consultation note dated 05/06/22.??In addition, will start Vistaril 50 mg PO Q6H PRN anxiety and Trazodone 50 mg PO daily at bedtime PRN insomnia. Can also utilize Zyprexa 5 mg and Benadryl 50 mg PO/IM Q6H PRN agitation/psychosis.??The preference is for PO medications, but if the patient refuses the oral medications and there is sufficient acute safety concern, can judiciously utilize IM equivalents for severe agitation. No additional changes were made to scheduled psychotropic medications at this time. Would note that these medications are only being utilized in the ER and/or medical floors while the patient awaits placement. Long-term need for these medications will need to be assessed by the patient's future treating psychiatrist. Disposition is ultimately deferred to [facility] services.?Vitals:?? No Vitals found for last 24 hours 10/24/2022 18:49?Mean Arterial Pressure ?92 mm Hg 10/24/2022 18:49?Pulse Pressure ?46 mm Hg ?Active Problems??(5) Bipolar disorder Cannabis use disorder, mild, abuse Depressive disorder Nicotine use disorder Schizophrenia, unspecified ?Medications (9) Active SCHEDULED: (0) CONTINUOUS: (0) PRN: (9) Acetaminophen 325 mg Tablet (Acetaminophen Tablet) ??650 mg, By Mouth, Every 8 hours Al hydroxide/Mg hydroxide/simethicone 200 mg-200 mg-20 mg/5 mL Susp UD (Maalox Plus Liquid) ??30 mL, By Mouth, Every 8 hours diphenhydrAMINE 25 mg Tablet (Benadryl Tablet) ??50 mg, By Mouth, Every 6 hours HydrOXYzine Pamoate 25mg Capsule (Vistaril Capsule) ??50 mg, By Mouth, Every 6 hours Ibuprofen 400 mg Tablet (Ibuprofen Tablet) ??400 mg, By Mouth, Every 8 hours Lorazepam 1 mg Tablet (LORazepam Tablet) ??1 mg, By Mouth, Every 8 hours Melatonin 3 mg Tablet (Melatonin Tablet) ??9 mg, By Mouth, Daily at bedtime Olanzapine 5 mg Tablet (olanzapine 5 mg oral tablet) ??5 mg, By Mouth, Every 6 hours Trazodone 50 mg Tablet (traZODone 50 mg oral tablet) ??50 mg, By Mouth, Daily at bedtime? Hematology ? Event Name?? Event Result?? Date/Time?? WBC 7 k/mm3 10/24/22 18:17:00 RBC 4.9 m/mm3 10/24/22 18:17:00 Hgb 14.5 Gm/dL 10/24/22 18:17:00 Hct 43.1 % 10/24/22 18:17:00 MCV 88 femtoliters 10/24/22 18:17:00 MCH 29.6 pg 10/24/22 18:17:00 MCHC 33.6 g/dL 10/24/22 18:17:00 Platelet Count 315 k/mm3 10/24/22 18:17:00 RDW-SD 39.1 femtoliters 10/24/22 18:17:00 MPV 8 femtoliters??Low 10/24/22 18:17:00 Nucleated RBC (Automated) 0 #/100 WBC'S 10/24/22 18:17:00 Abs. NRBC 0 k/mm3 10/24/22 18:17:00 Abs. Neut 2.7 k/mm3 10/24/22 18:17:00 Abs. Lymph 3.5 k/mm3??High 10/24/22 18:17:00 Abs. Cameron 0.6 k/mm3 10/24/22 18:17:00 Abs. Eo 0.2 k/mm3 10/24/22 18:17:00 Abs. Baso 0 k/mm3 10/24/22 18:17:00 Neut % 38.3 %??Low 10/24/22 18:17:00 Lymph % 49.7 %??High 10/24/22 18:17:00 Cameron % 9.2 % 10/24/22 18:17:00 Eos % 2.3 % 10/24/22 18:17:00 Baso % 0.4 % 10/24/22 18:17:00 Imm Gran 0.1 % 10/24/22 18:17:00 Abs. Imm Gran 0 k/mm3 10/24/22 18:17:00 ? Chemistry ? Event Name?? Event Result?? Date/Time?? Sodium 138 mmol/L 10/24/22 18:17:00 Potassium 4.1 mmol/L 10/24/22 18:17:00 Chloride 106 mmol/L 10/24/22 18:17:00 Bicarbonate Level 20 mmol/L??Low 10/24/22 18:17:00 Anion Gap 12 10/24/22 18:17:00 Glucose Level 131 mg/dL??High 10/24/22 18:17:00 BUN 14 mg/dL 10/24/22 18:17:00 Creatinine-Blood 0.7 mg/dL 10/24/22 18:17:00 Estimated GFR Creatinine 122 ML/MIN/1.73 M2 10/24/22 18:17:00 Calcium 9.4 mg/dL 10/24/22 18:17:00 TSH 0.63 uIU/mL 10/24/22 18:17:00 Ethanol, Serum or Plasma NONE DETECTED 10/24/22 18:17:00 Barbiturate Screen, Urine NONE DETECTED 10/24/22 17:57:00 Cannabinoid Screen, Urine NONE DETECTED 10/24/22 17:57:00 Cocaine Metabolite Screen, Urine POSITIVE Abnormal 10/24/22 17:57:00 Benzodiazepine Screen, Urine NONE DETECTED 10/24/22 17:57:00 Amphetamine Screen, Urine NONE DETECTED 10/24/22 17:57:00 Opiate Screen, Urine NONE DETECTED 10/24/22 17:57:00 ? Microbiology ? Event Name?? Event Result?? Date/Time?? COVID-19 by RT-PCR NEGATIVE 10/24/22 17:23:00 ? Assessment:?? Schizophrenia ??(F20.9) Paranoid delusion ??(F22) Agitation ??(R45.1) Auditory hallucinations ??(R44.0) Nonadherence to medication ??(Z91.14) Cocaine abuse (F14.10) Rule out SIPD Unsheltered homelessness (Z59.02) Financial insecurity (Z59.86) Medication nonadherence (Z91.14) ? 25 minutes time spent on this consult included review of the patient's medical records, lab and/or imaging studies, medication profiles, writing chart notes, communicating with healthcare professionals, with 15 minutes of the service devoted to medical consultative discussion with the treating/requesting provider, Dr. Maryjane Falk. ?? Edvin Vargas D.O.?? Motor Vehicle License Clerk, Emergency Psychiatry Services Division of Consultation-Liaison Psychiatry Department of Psychiatry [facility] ? Patient Care team information Care Team Personnel Name: Alejandro Duggan MD Position: [facility] Physician - Primary Care Member Role: PCP Address: Address: [address] [place] [address] Adult [place] [address]- Name: *S, ED Attending Position: [facility] ED Attendings Patient Name: Noemi Rendon RN Position: [facility] ED RN W/OE and Tasks Member Role: Patient Care Provider Name: Michael Rosenberg MD Position: [facility] Resident Member Role: ED Attending Physician Address: Address: [address] [place] [address]- Care Team Related Persons Name: MICHAEL BROCK Address: [address] [address] Name: LUISANA BROCK Name: NOONE, ATTHISTIME
--- OUTSIDE RECORDS SUMMARY | 2023-01-18 14:25 | XMS_ITS | Continuity of Care Document ---
Author Name Unknown Organization [facility] Address [address] [place] [address]- Care Team Providers Care Polisher Hand Name Role Phone Alejandro Duggan MD Primary Care Physician [phone] [facility] [place](s[place] 03/19/20 - 04/18/[address] [address]- Allergies, Adverse Reactions, Alerts Substance Reaction Severity Status Bee Stings Active Immunizations Given and Recorded Vaccine Date Status Refusal Reason influenza virus vaccine, inactivated 1 12/18/18 Gi neo influenza virus vaccine, inactivated 2 12/18/18 Gi neo Fluzone (oldterm) 3 04/13/11 Given tetanus-diphtheria toxoids (Td) 4 04/13/11 Given 1Result Comment: pt handled procedure well with no complaints. [facility]: [id number] 2Result Comment: pt handled procedure well with no complaints. TELEPHOTO ENGINEER ND: [id number] 3Admin Note: vis given 4Admin Note: VIS GIVEN 01/30/2008 Medications benztropine 0.5 mg oral tablet 0.5 mg, 1, tablet, By Mouth, 2 times a day, # 28 tablet, Refills 0, Tot. Refills 0, Maintenance, 01/08/20 13:33:00 EDT, Route to Pharmacy Electronically, [facility] #[id number], 170, cm, 12/18/18 16:20:00 EDT, Height Start Date: 01/08/20 Stop Date: 01/22/20 Status: Ordered haloperidol 2 mg oral tablet 2 mg, 1, tablet, By Mouth, 2 times a day, # 28 tablet, Refills 0, Tot. Refills 0, Maintenance, 01/08/20 13:33:00 EDT, Route to Pharmacy Electronically, [facility] #[id number], 170, cm, 12/18/18 16:20:00 EDT, Height Start [...]
--- OUTSIDE RECORDS SUMMARY | 2023-01-18 14:25 | XMS_ITS | Continuity of Care Document ---
Author Name Unknown Organization [facility] ter Address [address] [place] [address]- Care Team Providers Care Photo Colorer Name Role Phone Alejandro Duggan MD Primary Care Physician Encounter [facility] [place] Date(s): 06/15/22 - 06/16/[address] [address]- Encounter Diagnosis Auditory hallucination(Final) - 06/16/22 Schizophrenia(Final) - 06/16/22 Bipolar disorder(Final) - 06/16/22 Substance use(Final) - 06/16/22 Discharge Disposition: Transfer to [facility] Facility Attending Physician: Nicole Piper DO Admitting Physician: Nicole Piper DO Referring Physician: Not on Staff, Referring [...] handled procedure well with no complaints. nd: [id number] 2Result Comment: pt handled procedure well with no complaints. UTILITY SYSTEM OPERATOR ND: [id number] 3Admin Note: vis given 4Admin Note: VIS [...] 01/08/20 13:33:00 EDT, Route to Pharmacy Electronically, [facility] #[id number], 170, cm, 12/18/18 16:20:00 EDT, Height Start [...] 01/08/20 13:33:00 EDT, Route to Pharmacy Electronically, [facility] #[id number], 170, cm, 12/18/18 16:20:00 EDT, Height Start [...] Range]: 1 2 3 Height 170 cm (06/16/22 12:33 AM) Weight 64 kg (06/16/22 12:33 AM) Oxygen Saturation [94-100 %] 95 % (06/16/22 5:20 AM) 97 % (06/16/22:33 AM) 97 % (06/16/22 12:04 AM) Pulse Rate [55-90 bpm] 99 bpm *H* (06/16/22 5:20 AM) 99 bpm *H* (06/16/22:33 AM) 99 bpm *H* (06/16/22:04 AM) Blood Pressure [90-138/55-84 mm Hg] 118/57mm Hg (06/16/22:20 AM) 124/78mm Hg (06/16/22:33 AM) 124/78mm Hg (06/16/22 12:04 AM) Respiratory Rate [16-30 br/min] 16 br/min (06/16/22:20 AM) 16 br/min (06/16/22:33 AM) 16 br/min (06/16/22:04 AM) Temperature [96.8-100.4 DegF] 98.1 DegF (06/16/22:20 AM) 98.3 DegF (06/16/22:33 AM) 98.3 DegF (06/16/22 12:04 AM) Mode of Delivery (Oxygen) Room air (06/16/22 5:20 AM) Room air (06/16/22:33 AM) Room air (06/16/22 12:04 AM) Blood pressure sites Arm, left (06/16/22:20 AM) Arm, right (06/16/22:04 AM) Temperature Route Oral (06/16/22 5:20 AM) Oral (06/16/22:33 AM) Oral (06/16/22 12:04 AM) Dry Weight 64 kg (06/16/22: AM) Weight Obtained Via Patient/family state d (06/16/22: AM) Dry Weight Obtained Via Patient/family s tated (06/16/22 12:33 AM) Social History Social History Type Response Tobacco Use: 4 or less cigar ettes(less than 1/4 pack)/day in last 30 days. Other: pt smoke 1 cigarette a day in the evening. Sex Patient Care team information Care Team Personnel Name: Elly Freed Position: [facility] Outreach Member Role: Lifetime Consulting Physician Name: Alejandro Duggan MD Position: [facility] Primary Care Physician Member Role: PCP Address: Address: [address] [place] [address] Adult & Pediatric [place], [place] [address] Name: *[facility], ED Attending Position: [facility] ED Attendings Patient Name: Chantal Salas RN Position: [facility] ED RN W/OE and Tasks Member Role: Patient Care Provider Name: Buddy De Oliveira RN Position: [facility] ED RN W/OE and Tasks Member Role: Patient Care Provider Name: Nicole Piper DO Position: [facility] ED Medicine MD Member Role: Admitting Physician Address: Address: [address] [place] [id number]- Care Team Related Persons Name: MICHAEL RBOCK Address: [address] [address] Name: LUISANA BROCK Name: NOONE, ATTHISTIME
--- OUTSIDE RECORDS SUMMARY | 2023-01-18 14:25 | XMS_ITS | Continuity of Care Document ---
Author Name Unknown Organization [facility] Address [address] [place] [address]- Care Team Providers Care Six Horse Hitch Driver Name Role Phone Alejandro Duggan MD Primary Care Physician [place] [facility] [place] [id number] Date(s): 10/03/19 - 11/02/19 [facility] [address] [place] [address]- [facility] Attending Physician: Roshan Rogers Admitting Physician: AdmtrRoshan Referring Physician: AdmtrRoshan Allergies, Adverse Reactions, Alerts Substance Reaction Severity Status Bee Stings Active Immunizations Given and Recorded Vaccine Date Status Refusal Reason influenza virus vaccine, inactivated 1 12/18/18 Gi neo influenza virus vaccine, inactivated 2 12/18/18 Gi neo Fluzone (oldterm) 3 04/13/11 Given tetanus-diphtheria toxoids (Td) 4 04/13/11 Given 1Result Comment: pt handled procedure well with no complaints. nd: [id number] 2Result Comment: pt handled procedure well with no complaints. REFRIGERATOR [place]ER [place]: [id number] 3Admin Note: vis given 4Admin Note: VIS GIVEN 01/30/2008 Medications Abilify 10 mg oral tablet 10 mg, 1, tablet, By Mouth, Daily, # 90 tablet, Refills 11, Tot. Refills 11, Maintenance, 02/28/19 14:51:00 EST, Route to Pharmacy Electronically, [facility] #[id number], 170, cm, 12/18/18 16:20:00 EDT, Height Start Date: 02/28/19 Status: Ordered Fish Oil 500 mg oral capsule 2 capsule = 1,000 mg, By Mouth, 2 times a day, # 120 capsule, 0 Refills, Maintenance, 12/18/18 16:29:49 EDT Start Date: 12/18/18 Status: Ordered Problem List Condition Effective Dates [...]
--- OUTSIDE RECORDS SUMMARY | 2023-01-18 14:25 | XMS_ITS | Continuity of Care Document ---
Author Name Unknown Organization [facility] Address [address] [place] [address]- Care Team Providers Care Printing Estimator Name Role Phone Alejandro Duggan MD Primary Care Physician Encounter [facility] Date(s): 06/01/21 - 07/01/21 [facility] [address] [place], [place] [address] Attending Physician: Roshan Rogers Admitting Physician: Roshan Rogers Referring Physician: AdmtrRoshan Allergies, Adverse Reactions, Alerts Substance Reaction Severity Status Bee Stings Active Immunizations Given and Recorded Vaccine Date Status Refusal Reason influenza virus vaccine, inactivated 1 12/18/18 Gi neo influenza virus vaccine, inactivated 2 12/18/18 Gi neo Fluzone (oldterm) 3 04/13/11 Given tetanus-diphtheria toxoids (Td) 4 04/13/11 Given 1Result Comment: pt handled procedure well with no complaints. nd: [id number] 2Result Comment: pt handled procedure well with no complaints. EDITOR HOUSE ORGAN [place]: [id number] 3Admin Note: vis given 4Admin Note: VIS [...] 01/08/20 13:33:00 EDT, Route to Pharmacy Electronically, [facility] #[id number], 170, cm, 12/18/18 16:20:00 EDT, Height Start [...] 01/08/20 13:33:00 EDT, Route to Pharmacy Electronically, [facility] #[id number], 170, cm, 12/18/18 16:20:00 EDT, Height Start [...]
--- OUTSIDE RECORDS SUMMARY | 2023-01-18 14:25 | XMS_ITS | Continuity of Care Document ---
Author Name Unknown Organization [facility] Address [address] [place] [address]- Care Team Providers Care Case Coordinator Name Role Phone Alejandro Duggan MD Primary Care Physician [place] [facility] [place] Date(s): 02/21/19 - 06/21/19 [facility] [address] [place] [address]- [facility] Attending Physician: Alejandro Duggan MD Allergies, Adverse [...] complaints. [facility]: [id number] 2Result Comment: pt handled procedure well with no complaints. MAINTENANCE ENGINEER OIL FIELD ND: [phone] 3Admin Note: vis given 4Admin Note: VIS GIVEN 01/30/2008 Medications Abilify 10 mg oral tablet 10 mg, 1, tablet, By Mouth, Daily, # 90 tablet, Refills 11, Tot. Refills 11, Maintenance, 02/28/19 14:51:00 EST, Route to Pharmacy Electronically, [facility] #[id number], 170, cm, 12/18/18 16:20:00 EDT, Height Start Date: 02/28/19 Status: Ordered Fish Oil 500 mg oral capsule 2 capsule = 1,000 mg, By Mouth, 2 times a day, # 120 capsule, 0 Refills, Maintenance, 12/18/18 16:29:49 EDT Start Date: 12/18/18 Status: Ordered Problem List Condition Effective Dates Status Health Status Inform ant Bipolar disorder(Confirmed) Active Depressive disorder(Confirmed) Active Social History Social History Type Response Tobacco Use: 4 or less cigar ettes(less than 1/4 pack)/day in last 30 days. Other: pt smoke 1 cigarette a day in the evening. Sex
--- OUTSIDE RECORDS SUMMARY | 2023-01-18 14:25 | XMS_ITS | Continuity of Care Document ---
Author Name Unknown Organization [facility] Address [address] [place] [address]- Care Team Providers Care Land Degradation Analyst Name Role Phone Urban GARNER, Maxx Primary Care Physician Encounter [facility] Date(s): 12/05/19 - 01/04/20 [facility] [address] [place] [address]- [facility] Allergies, Adverse Reactions, Alerts Substance Reaction Severity Status Bee Stings Active Immunizations Given and Recorded Vaccine Date Status Refusal Reason influenza virus vaccine, inactivated 1 12/18/18 Gi neo influenza virus vaccine, inactivated 2 12/18/18 Gi neo Fluzone (oldterm) 3 04/13/11 Given tetanus-diphtheria toxoids (Td) 4 04/13/11 Given 1Result Comment: pt handled procedure well with no complaints. [facility] [place][note 2]: [id number] 2Result Comment: pt handled procedure well with no complaints. RADAR TECHNICIAN ND: [id number] 3Admin Note: vis given 4Admin Note: VIS GIVEN 01/30/2008 Medications ARIPiprazole 10 mg oral tablet 10 mg, 1, tablet, By Mouth, Daily, # 30 tablet, Refills 3, Tot. Refills 3, Maintenance, 01/04/20 12:21:00 EDT, Route to Pharmacy Electronically, [facility] #[id number], 170, cm, 12/18/18 16:20:00 EDT, Height Start Date: 01/04/20 Status: Ordered Problem List Condition Effective Dates [...]
--- OUTSIDE RECORDS SUMMARY | 2023-01-18 14:25 | XMS_ITS | Continuity of Care Document ---
Author Name Unknown Organization [facility] ter Address [address] [place] [address]- Care Team Providers Care Gauge And Weigh Machine Adjuster Name Role Phone Alejandro Duggan MD Primary Care Physician [phone] Encounter [facility] Date(s): 04/09/20 - 04/09/[address] [address]- Encounter Diagnosis Schizophrenia(Final) - 04/09/20 Schizophrenia(Final) - 04/09/20 Discharge Disposition: A-D/C Home Attending Physician: Corey Morrison MD Admitting Physician: Corey Morrison MD Referring Physician: Not on Staff, Referring [...] handled procedure well with no complaints. nd: [id number] 2Result Comment: pt handled procedure well with no complaints. DYNAMOMETER TUNER ND: [id number] 3Admin Note: vis given 4Admin Note: VIS GIVEN 01/30/2008 Medications benztropine 0.5 mg oral tablet 0.5 mg, 1, tablet, By Mouth, 2 times a day, # 28 tablet, Refills 0, Tot. Refills 0, Maintenance, 01/08/20 13:33:00 EDT, Route to Pharmacy Electronically, [facility] #[id number], 170, cm, 12/18/18 16:20:00 EDT, Height Start Date: 01/08/20 Stop Date: 01/22/20 Status: Ordered haloperidol 2 mg oral tablet 2 mg, 1, tablet, By Mouth, 2 times a day, # 28 tablet, Refills 0, Tot. Refills 0, Maintenance, 01/08/20 13:33:00 EDT, Route to [facility], [id number], 170, cm, 12/18/18 16:20:00 EDT, Height Start Date: 01/08/20 Stop Date: 01/22/20 Status: Ordered Problem List Condition Effective Dates Status Health Status Inform ant Bipolar disorder(Confirmed) Active Cannabis use disorder, mild, abuse(Confirmed) Active Depressive disorder(Confirmed) Active Nicotine use disorder(Confirmed) Active Schizophrenia, unspecified(Confirmed) Active Vital Signs Most recent to oldest [Reference Range]: 1 Oxygen Saturation [94-100 %] 99 % (04/09/20 4:24 AM) Pulse Rate [55-90 bpm] 83 bpm (04/09/20 4:24 AM) Blood Pressure [90-138/55-84 mm Hg] 110/ 75mm Hg (04/09/20 4:24 AM) Respiratory Rate [16-30 br/min] 16 br/mi n (04/09/20 4:24 AM) Temperature [96.8-100.4 DegF] 98.1 DegF (04/09/20 4:24 AM) Mode of Delivery (Oxygen) Room air (04/09/20 4:24 AM) Blood pressure sites Arm, left (04/09/20 4:24 AM) Temperature Route Oral (04/09/20 4:24 AM) Social History Social History Type Response Tobacco Use: 4 or less cigar ettes(less than 1/4 pack)/day in last 30 days. Other: pt smoke 1 cigarette a day in the evening. Sex
--- OUTSIDE RECORDS SUMMARY | 2023-01-18 14:25 | XMS_ITS | Continuity of Care Document ---
Author Name Unknown Organization [facility] Address [address] [place] [address]- Care Team Providers Care Director Pediatric Name Role Phone Alejandro Duggan MD Primary Care Physician Encounter [facility] Date(s): 05/22/19 - 06/01/19 [facility] [address] [place] [address]- [facility] Attending Physician: Roshan Rogers Admitting Physician: Roshan Rogers Referring Physician: Roshan Rogers Allergies, Adverse Reactions, Alerts Substance Reaction Severity Status Bee Stings Active Immunizations Given and Recorded Vaccine Date Status Refusal Reason influenza virus vaccine, inactivated 1 12/18/18 Gi neo influenza virus vaccine, inactivated 2 12/18/18 Gi eno Fluzone (oldterm) 3 04/13/11 Given tetanus-diphtheria toxoids (Td) 4 04/13/11 Given 1Result Comment: pt handled procedure well with no complaints. nd: [id number] 2Result Comment: pt handled procedure well with no complaints. RESIDENTIAL INSTALLER NDC: [id number] 3Admin Note: vis given 4Admin Note: VIS GIVEN 01/30/2008 Medications Abilify 10 mg oral tablet 10 mg, 1, tablet, By Mouth, Daily, # 90 tablet, Refills 11, Tot. Refills 11, Maintenance, 02/28/19 14:51:00 EST, Route to Pharmacy Electronically, [facility] #[id number], 170, cm, 12/18/18 16:20:00 EDT, Height Start [...]
--- OUTSIDE RECORDS SUMMARY | 2023-01-18 14:26 | XMS_ITS | Continuity of Care Document ---
Author Name Unknown Organization [facility] ter Address [address] [place] [address]- Care Team Providers Care Oxygen Therapy Teacher Name Role Phone Urban GARNER, Alejandro Primary Care Physician Encounter [facility] [place] Date(s): 05/03/20 - 05/03/[address] [address]- Discharge Disposition: A-D/C Home Attending Physician: Corey [...] handled procedure well with no complaints. [facility]: [id number] 2Result Comment: pt handled procedure well with no complaints. REGIONAL SALES ENGINEER [place]: [id number] 3Admin Note: vis given 4Admin Note: VIS [...] 01/08/20 13:33:00 EDT, Route to Pharmacy Electronically, [facility] #[id number], 170, cm, 12/18/18 16:20:00 EDT, Height Start [...] 01/08/20 13:33:00 EDT, Route to Pharmacy Electronically, [facility] #[id number], 170, cm, 12/18/18 16:20:00 EDT, Height Start Date: 01/08/20 Stop Date: 01/22/20 Status: Ordered Problem List Condition Effective Dates Status Health Status Inform ant Bipolar disorder(Confirmed) Active Cannabis use disorder, mild, abuse(Confirmed) Active Depressive disorder(Confirmed) Active Nicotine use disorder(Confirmed) Active Schizophrenia, unspecified(Confirmed) Active Vital Signs Most recent to oldest [Reference Range]: 1 2 Weight 68.0 kg (05/03/20 2:30 PM) 68.0 kg (05/03/20 11:02 AM) Oxygen Saturation [94-100 %] 95 % (05/03/20 11:00 AM) Pulse Rate [55-90 bpm] 94 bpm *H* (05/03/20 11:02 AM) 94 bpm *H* (05/03/20 11:00 AM) Blood Pressure [90-138/55-84 mm Hg] 120/ 68mm Hg (05/03/20 11:02 AM) Respiratory Rate [16-30 br/min] 16 br/mi n (05/03/20 11:02 AM) Temperature [96.8-100.4 DegF] 101.9 DegF *H* (05/03/20 12:20 PM) 99.5 DegF (05/03/20 11:02 AM) Blood pressure sites Arm, left (05/03/20 11:02 AM) Temperature Route Rectal (05/03/20 12:20 PM) Oral (05/03/20 11:02 AM) Social History Social History Type Response Tobacco Use: 4 or less cigar ettes(less than 1/4 pack)/day in last 30 days. Other: pt smoke 1 cigarette a day in the evening. Sex
--- OUTSIDE RECORDS SUMMARY | 2023-01-18 14:26 | XMS_ITS | Continuity of Care Document ---
Author Name Unknown Organization [facility] Address [address] [place] [address]- Care Team Providers Care Cross Country Coach Name Role Phone Zaire Duggan [facility] Primary Care Physician [phone] [place] [facility] [place] 02/28/19 - 04/14/19 [facility] [address] [place] [address]- [facility] Attending Physician: Not on Staff, Attending MD Allergies, Adverse Reactions, Alerts Substance Reaction Severity Status Bee Stings Active Immunizations Given and Recorded Vaccine Date Status Refusal Reason influenza virus vaccine, inactivated 1 12/18/18 Gi neo influenza virus vaccine, inactivated 2 12/18/18 Gi neo Fluzone (oldterm) 3 04/13/11 Given tetanus-diphtheria toxoids (Td) 4 04/13/11 Given 1Result Comment: pt handled procedure well with no complaints. nd: [id number] 2Result Comment: pt handled procedure well with no complaints. PUPPET ENGINEER ND: [id number] 3Admin Note: vis given 4Admin Note: VIS GIVEN 01/30/2008 Medications Abilify 10 mg oral tablet 10 mg, 1, tablet, By Mouth, Daily, # 90 tablet, Refills 11, Tot. Refills 11, Maintenance, 02/28/19 14:51:00 EST, Route to Pharmacy Electronically, [facility] #[id number], 170, cm, 12/18/18 16:20:00 EDT, Height Start [...]
--- OUTSIDE RECORDS SUMMARY | 2023-01-18 14:26 | XMS_ITS | Continuity of Care Document ---
Author Name Unknown Organization [facility] ter Address [address] [place] [address]- Care Team Providers Care Bottom Filler Name Role Phone Urban [facility]ARN[facility], [facility] Primary Care Physician Encounter [facility] [place] Date(s): 01/03/20 - 01/08/[address] [address]- [facility] Encounter Diagnosis Acute psychosis(Final) - 01/08/20 Discharge Disposition: A-D/C Home Attending Physician: Jacob Swenson MD Admitting Physician: Jacob Swenson MD Referring Physician: Not on Staff, Referring [...] pt handled procedure well with no complaints. [facility]: [id number] 2Result Comment: pt handled procedure well with no complaints. [place]ARD [place]: [id number] 3Admin Note: vis given 4Admin Note: VIS GIVEN 01/30/2008 Medications benztropine 0.5 mg oral tablet 0.5 mg, 1, tablet, By Mouth, 2 times a day, # 28 tablet, Refills 0, Tot. Refills 0, Maintenance, 01/08/20 13:33:00 EDT, Route to Pharmacy Electronically, [facility] #[id number], 170, cm, 12/18/18 16:20:00 EDT, Height Start Date: 01/08/20 Stop Date: 01/22/20 Status: Ordered haloperidol 2 mg oral tablet 2 mg, 1, tablet, By Mouth, 2 times a day, # 28 tablet, Refills 0, Tot. Refills 0, Maintenance, 01/08/20 13:33:00 EDT, Route to Pharmacy Electronically, [facility] #[id number], 170, cm, 12/18/18 16:20:00 EDT, Height Start Date: 01/08/20 Stop Date: 01/22/20 Status: Ordered Problem List Condition Effective Dates Status Health Status Inform ant Bipolar disorder(Confirmed) Active Cannabis use disorder, mild, abuse(Confirmed) Active Depressive disorder(Confirmed) Active Nicotine use disorder(Confirmed) Active Schizophrenia, unspecified(Confirmed) Active Vital Signs Most recent to oldest [Reference Range]: 1 2 3 Oxygen Saturation [94-100 %] 100 % (01/08/20 1:00 PM) 99 % (01/08/20 5:27 AM) 99 % (01/07/20 9:18 PM) Pulse Rate [55-90 bpm] 93 bpm *H* (01/08/20 1:00 PM) 68 bpm (01/08/20 5:27 AM) 64 bpm (01/07/20 9:18 PM) Blood Pressure [90-138/55-84 mm Hg] 133/83mm Hg (01/08/20 1:00 PM) 118/72mm Hg (01/08/20 5:27 AM) 120/73mm Hg (01/07/20 9:18 PM) Respiratory Rate [16-30 br/min] 18 br/min (01/08/20 1:00 PM) 18 br/min (01/08/20 5:27 AM) 17 br/min (01/07/20 9:18 PM) Temperature [96.8-100.4 DegF] 98 DegF (01/08/20 1:00 PM) 98.2 DegF (01/07/20 10:36 AM) 97.6 DegF (01/07/20 5:03 AM) Mode of Delivery (Oxygen) Room air (01/08/20 1:00 PM) Room air (01/07/20 4:36 PM) Room air (01/07/20 10:36 AM) Blood pressure sites Arm, left (01/08/20 1:00 PM) Arm, right (01/07/20 4:36 PM) Arm, right (01/07/20 5:03 AM) Temperature Route Oral (01/08/20 1:00 PM) Oral (01/07/20 10:36 AM) Oral (01/07/20 5:03 AM) Social History Social History Type Response Tobacco Use: 4 or less cigar ettes(less than 1/4 pack)/day in last 30 days. Other: pt smoke 1 cigarette a day in the evening. Sex
--- OUTSIDE RECORDS SUMMARY | 2023-01-18 14:26 | XMS_ITS | Continuity of Care Document ---
Author Name Unknown Organization [facility] ter Address [address] [place] [address]- Care Team Providers Care Strategy Intern Name Role Phone Urban GARNER, Alejandro Primary Care Physician [phone] [place] [facility] [place] - 02/22/[address] [address]- Discharge Disposition: A-D/C Walkout Attending Physician: Jacob Swenson MD Admitting Physician: Jacob Swenson MD Referring Physician: Jacob Swenson MD Allergies, Adverse Reactions, Alerts Substance Reaction Severity Status Bee Stings Active Immunizations Given and Recorded Vaccine Date Status Refusal Reason influenza virus vaccine, inactivated 1 12/18/18 Gi neo influenza virus vaccine, inactivated 2 12/18/18 Gi neo Fluzone (oldterm) 3 04/13/11 Given tetanus-diphtheria toxoids (Td) 4 04/13/11 Given 1Result Comment: pt handled procedure well with no complaints. [facility]: [id number] 2Result Comment: pt handled procedure well with no complaints. CLOTH SHRINKING [place]PERATOR [place]: [id number] 3Admin Note: vis given 4Admin Note: VIS GIVEN 01/30/2008 Medications benztropine 0.5 mg oral tablet 0.5 mg, 1, tablet, By Mouth, 2 times a day, # 28 tablet, Refills 0, Tot. Refills 0, Maintenance, 01/08/20 13:33:00 EDT, Route to Pharmacy Electronically, [facility] #[id number], 170, cm, 12/18/18 16:20:00 EDT, Height Start Date: 01/08/20 Stop Date: 01/22/20 Status: Ordered haloperidol 2 mg oral tablet 2 mg, 1, tablet, By Mouth, 2 times a day, # 28 tablet, Refills 0, Tot. Refills 0, Maintenance, 01/08/20 13:33:00 EDT, Route to Pharmacy Electronically, [facility] #[id number], 170, cm, 12/18/18 16:20:00 EDT, Height Start Date: 01/08/20 Stop Date: 01/22/20 Status: Ordered Problem List Condition Effective Dates Status Health Status Inform ant Bipolar disorder(Confirmed) Active Cannabis use disorder, mild, abuse(Confirmed) Active Depressive disorder(Confirmed) Active Nicotine use disorder(Confirmed) Active Schizophrenia, unspecified(Confirmed) Active Vital Signs Most recent to oldest [Reference Range]: 1 2 Oxygen Saturation [94-100 %] 97 % (02/22/20 9:19 PM) 99 % (02/22/20 9:18 PM) Pulse Rate [55-90 bpm] 86 bpm (02/22/20 9:19 PM) 92 bpm *H* (02/22/20 9:18 PM) Blood Pressure [90-138/55-84 mm Hg] 139/ 80mm Hg *H* (02/22/20 9:19 PM) Respiratory Rate [16-30 br/min] 14 br/mi n *L* (02/22/20 9:19 PM) Temperature [96.8-100.4 DegF] 98 DegF (02/22/20 9:19 PM) Mode of Delivery (Oxygen) Room air (02/22/20 9:19 PM) Room air (02/22/20 9:18 PM) Temperature Route Oral (02/22/20 9:19 PM) Social History Social History Type Response Tobacco Use: 4 or less cigar ettes(less than 1/4 pack)/day in last 30 days. Other: pt smoke 1 cigarette a day in the evening. Sex
--- OUTSIDE RECORDS SUMMARY | 2023-01-18 14:26 | XMS_ITS | Continuity of Care Document ---
Author Name Unknown Organization [facility] Address [address] [place] [address]- Care Team Providers Care Student Life Dean Name Role Phone Alejandro Duggan MD Primary Care Physician Encounter [facility] [place] Date(s): 03/15/19 - 03/25/19 [facility] [address] [place] [address]- [facility] Attending Physician: Roshan Rogers Admitting Physician: Roshan [...] handled procedure well with no complaints. nd: [id number] 2Result Comment: pt handled procedure well with no complaints. SOURCING INTERNSHIP NDC: [id number] 3Admin Note: vis given 4Admin Note: VIS GIVEN 01/30/2008 Medications Abilify 10 mg oral tablet 10 mg, 1, tablet, By Mouth, Daily, # 90 tablet, Refills 11, Tot. Refills 11, Maintenance, 02/28/19 14:51:00 EST, Route to Pharmacy Electronically, [facility] #[id number], 170, cm, 12/18/18 16:20:00 EDT, Height Start [...]
--- OUTSIDE RECORDS SUMMARY | 2023-01-18 14:26 | XMS_ITS | Continuity of Care Document ---
Author Name Unknown Organization [facility] Address [address] [place] [address]- Care Team Providers Care Javascript Developer Name Role Phone Alejandro Duggan MD Primary Care Physician [id number] Date(s[facility] 10/[facility]/19 - 10/10/19 [facility] [address] [place] [address]- [facility] Encounter Diagnosis Schizophrenia, unspecified(Discharge Diagnosis) - 10/03/19 Cannabis use disorder, mild, abuse(Discharge Diagnosis) - 10/03/19 Nicotine use disorder(Discharge Diagnosis) - 10/03/19 Attending Physician: Alejandro Duggan MD Allergies, Adverse Reactions, Alerts Substance Reaction Severity Status Bee Stings Active Immunizations Given and Recorded Vaccine Date Status Refusal Reason influenza virus vaccine, inactivated 1 12/18/18 Gi neo influenza virus vaccine, inactivated 2 12/18/18 Gi neo Fluzone (oldterm) 3 04/13/11 Given tetanus-diphtheria toxoids (Td) 4 04/13/11 Given 1Result Comment: pt handled procedure well with no complaints. nd: [id number] 2Result Comment: pt handled procedure well with no complaints. EMBROIDERER NDC: [id number] 3Admin Note: vis given 4Admin Note: VIS GIVEN 01/30/2008 Medications Abilify 10 mg oral tablet 10 mg, 1, tablet, By Mouth, Daily, # 90 tablet, Refills 11, Tot. Refills 11, Maintenance, 02/28/19 14:51:00 EST, Route to Pharmacy Electronically, [facility] #[id number], 170, cm, 12/18/18 16:20:00 EDT, Height Start [...] Nicotine use disorder(Confirmed) Active Schizophrenia, unspecified(Confirmed) Active Diagnosis Diagnosis Type Effective Dates Health Status Clinical Service Informant Schizophrenia, unspecified Discharge Diagnosis 10/03/19 Cannabis use disorder, mild, abuse Discharge Diagnosis 10/03/19 Nicotine use disorder Discharge Diagnosis 10/03/19 Social History Social History Type Response Tobacco Use: 4 or less cigar ettes(less than 1/4 pack)/day in last 30 days. Other: pt smoke 1 cigarette a day in the evening. Sex
--- OUTSIDE RECORDS SUMMARY | 2023-01-18 14:26 | XMS_ITS | Continuity of Care Document ---
Author Name Unknown Organization [facility] ter Address [address] [place] [address]- Care Team Providers Care Teletype Adjuster Name Role Phone Urban GARNER, Alejandro Primary Care Physician Encounter [facility] Date(s): 04/21/22 - 04/22/[address] [address]- Discharge Disposition: A-D/C Home Attending Physician: Micha Jane MD Admitting Physician: Micha Jane MD Referring Physician: Not on Staff, Referring [...] pt handled procedure well with no complaints. [facility]: [id number] 2Result Comment: pt handled procedure well with no complaints. PROJECT MANAGER INTERIOR DESIGN [place]: [id number] 3Admin Note: vis given 4Admin Note: VIS [...] 01/08/20 13:33:00 EDT, Route to Pharmacy Electronically, [facility] #[id number], 170, cm, 12/18/18 16:20:00 EDT, Height Start [...] 01/08/20 13:33:00 EDT, Route to Pharmacy Electronically, [facility] #[id number], 170, cm, 12/18/18 16:20:00 EDT, Height Start Date: 01/08/20 Stop Date: 01/22/20 Status: Ordered Problem List Condition Confirmation Course Effective Dates Status Health St [facility] Informant Bipolar disorder Confirmed Active Cannabis use disorder, mild, abuse Confirmed Active Depressive disorder Confirmed Active Nicotine use disorder Confirmed Active Schizophrenia, unspecified Confirmed Active Vital Signs Most recent to oldest [Reference Range]: 1 Oxygen Saturation [94-100 %] 99 % (04/21/22 11:20 PM) Pulse Rate [55-90 bpm] 70 bpm (04/21/22 11:20 PM) Blood Pressure [90-138/55-84 mm Hg] 116/ 64mm Hg (04/21/22 11:20 PM) Respiratory Rate [16-30 br/min] 17 br/mi n (04/21/22 11:20 PM) Temperature [96.8-100.4 DegF] 98.4 DegF (04/21/22 11:20 PM) Mode of Delivery (Oxygen) Room air (04/21/22 11:20 PM) Blood pressure sites Arm, left (04/21/22 11:20 PM) Temperature Route Oral (04/21/22 11:20 PM) Social History Social History Type Response Tobacco Use: 4 or less cigar ettes(less than 1/4 pack)/day in last 30 days. Other: pt smoke 1 cigarette a day in the evening. Sex Patient Care team information Care Team Personnel Name: Abdiaziz Teganjanine Position: [facility] Outreach Member Role: Lifetime Consulting Physician Name: Alejandro Duggan MD Position: [facility] Primary Care Physician Member Role: PCP Address: Address: [address] [place] [address] Adult & Pediatric Medicine [address] Name: Opal Poe Position: [facility] Associate Professional Member Role: ED Physician Machine Operator Picker Address: Address: [address] [place] [address] Name: Opal Redd RN Position: [facility] ED RN W/OE and Tasks Member Role: Patient Care Provider Name: Faith Bridges Position: [facility] ED TA [facility] Member Role: Patient Care Provider Name: Micha Jane MD Position: [facility] ED Medicine MD Member Role: Admitting Physician Address: Address: [address] [place] [address] Care Team Related Persons Name: MICHAEL MARIO Address: [address] [place] [address] Name: NOONE, ATTHISTIME
[2023-01-18 14:45] VITALS: BP 133/88; PULSE 80; RESP 18; TEMP 36.5; O2SAT 95
--- NOTE | 2023-01-18 17:34 | PC.ADMIT ---
Garret is a 32 year old Monegasque speaking male who arrived to the unit from [facility] at 14:35 on a CV for psychosis. Patient reported hearing voices and responding to internal stimuli. Sharps check done by this nurse and another RN, skin appears to be intact. Patient is alert and oriented x3 and cooperative during assessment, but thought process is tangential and patients answers tend to be non consistent with reports from hospital. Tox screen at [facility] came up positive for cocaine and fentanyl but when asked, patient stated hes only ever used cocaine and It's been a while . Patient also reported that he lives in a house with his mother, but reports from [facility] state that patient is currently homeless. He states he sleeps well with use of his Zyprexa at night and has a good appetite with no recent weight loss. Garret denies currently endorsing AVH but states prior to arriving to [facility], he was hearing voices telling him to hurt himself. He denied depression, anxiety and SI/HI along with any physical complaints at this time. During the admission assessment, patient's answers to some questions seemed nonsensical, stated he aligns himself with the flynn and stars when asked how he deals with any stresses/triggers in his life. Affect varies and patient is pleasant upon interaction. He states he feels safe on the unit and feels comfortable reaching out to staff if having any negative thoughts or hallucinations.
[2023-01-18] MEDS: OLANZapine 2.5 MG TABLET PO (20:45)
[2023-01-18 20:46] VITALS: BP 105/57; PULSE 77; RESP 14
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
[2023-01-19 08:00] VITALS: BP 123/70; PULSE 84; TEMP 36.5; O2SAT 94
[2023-01-19] MEDS: Nicotine 14 MG PATCH.TD24 TRANSDERMA (08:16)
[2023-01-19] MEDS: ARIPiprazole 5 MG TABLET PO (08:17)
[2023-01-19 08:18] VITALS: BP 123/70; PULSE 84; RESP 18; TEMP 36.5; O2SAT 94
[2023-01-19 09:17] LABS: Alanine Aminotransferase 34 U/L (0-40); Albumin Level 4.4 g/dL (3.5-5.0); Alkaline Phosphatase 77 U/L (39-117); Anion Gap 13 (12-20); Aspartate Amino Transferase 28 U/L (5-37); Bilirubin Total 0.2 mg/dL (0.0-1.0); Blood Urea Nitrogen 11 mg/dL (9-16); Calcium 9.6 mg/dL (8.4-10.2); Carbon Dioxide 25 mmol/L (22-29); Chloride 106 mmol/L (96-108); Cholesterol 189 mg/dL (<200); Estimated Glomerular Filt Rate > 60; Glucose Fasting 90 mg/dL (60-99); HDL Cholesterol 39 mg/dL (>40); LDL Cholesterol Calculated 115 mg/dL (<100); Potassium 4.5 mmol/L (3.3-5.1); Sodium 139 mmol/L (135-145); Triglycerides 178 mg/dL (<150)
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
[2023-01-19 12:00] VITALS: BP 152/88; PULSE 91; RESP 18; O2SAT 94
--- NOTE | 2023-01-19 13:17 | PC.NURSE ---
Patient submitted 3 day notice
[2023-01-19 16:00] VITALS: BP 128/90; PULSE 96; TEMP 36.8; O2SAT 98
[2023-01-19 20:15] VITALS: BP 117/66; PULSE 100; RESP 16; TEMP 36.5; O2SAT 98
[2023-01-19] MEDS: Benztropine Mesylate 0.5 MG TABLET PO (20:20)
[2023-01-19] MEDS: OLANZapine 10 MG TABLET PO (20:20)
[2023-01-20 08:00] VITALS: BP 125/79; PULSE 79; RESP 18; TEMP 1.9; TEMP 35.4; O2SAT 97
[2023-01-20] MEDS: Benztropine Mesylate 0.5 MG TABLET PO ×2 (08:54→20:55)
[2023-01-20] MEDS: Nicotine 14 MG PATCH.TD24 TRANSDERMA (08:54)
[2023-01-20] MEDS: ARIPiprazole 5 MG TABLET PO (08:54)
--- NOTE | 2023-01-20 09:21 | P.PNPSI_ITS ---
Subjective Subjective Date of Service: 01/20/23 Reason For Visit: F28 Subjective Notes: 3 Day Interim History: Reviewed in team and . Pt presents with organized thought process; no longer tangential. Patient reports feeling better today; pt stated, the medications helped with my voices. I plan on going back to [place] after here . Showered. Social with peers. denies SI/HI/VH/AH. Medication Compliance: Yes Side effects from medications: No Attending Groups: Intermittent Review of Systems Constitutional: Reports as per HPI Eyes: Reports as per HPI Reports as per HPI Cardiovascular: Reports as per HPI Respiratory: Reports as per HPI Gastrointestinal: Reports as per HPI Genitourinary: Reports as per HPI Musculoskeletal: Reports as per HPI Skin/Breast: Reports as per HPI Reports as per HPI Psychiatric: Reports as per HPI Endocrine: Reports as per HPI Hematologic/Lymphatic: Reports as per HPI Allergic/Immunologic: Reports as per HPI Mental Status Exam Mental Status Exam Narrative: Pt is alert and oriented; behavior is cooperative, friendly and calm; dressed in casual attire; mood is described as better ; eye contact appropriate; Speech is normal rate, volume and prosody and not pressured; no psychomotor agitation/retardation present; thought process is organized and goal directed; Thought content is on tx; otherwise pertinent to relevant topics and without any delusional content, paranoid ideations or grandiosity; denies SI/HI. There is no evidence of perceptual disturbance. Patients insight and judgment are fair. Diagnostics Vital Signs (24Hr): Vital Signs - 24 hr 01/19/23 12:00 01/19/23 16:00 01/19/23 20:15 Temperature 98.2 F 97.7 F Pulse Rate 91 96 100 Respiratory Rate 18 16 Blood Pressure 152/88 H 128/90 H 117/66 Pulse Oximetry 94 98 98 Oxygen Delivery Method Room Air Room Air Room Air 01/20/23 08:00 Temperature 35.4 F L Pulse Rate 79 Respiratory Rate 18 Blood Pressure 125/79 Pulse Oximetry 97 Oxygen Delivery Method Room Air Labs 01/19/23 08:40 Labs: Laboratory Results - last 48 hr 01/19/23 08:40 Sodium 139 Potassium 4.5 Chloride 106 Carbon Dioxide 25 Anion Gap 13 BUN 11 Creatinine 0.74 Estim Creat Clear Calc TNP Estimated GFR > 60 Fasting Glucose 90 Calcium 9.6 Total Bilirubin 0.2 AST 28 ALT 34 Alkaline Phosphatase 77 Total Protein 8.0 Albumin 4.4 Triglycerides 178 H Cholesterol 189 LDL Cholesterol, Calc 115 H HDL Cholesterol 39 L Medications Medications Current Medications Acetaminophen (Acetaminophen 325 Mg Tablet) 650 mg PO Q6H PRN PRN Reason: Headache/Pain Mild Scale (1-3) Al Hydroxide/Mg Hydroxide (Magnesium Hydrox/Alum Hydrox 30 Ml Oral.Susp) 30 ml PO Q6H PRN PRN Reason: Heartburn/Nausea Aripiprazole (Aripiprazole 5 Mg Tablet) 5 mg PO DAILY [facility] Last Admin: 01/20/23 08:54 Dose: 5 mg Benztropine Mesylate (Benztropine Mesylate 0.5 Mg Tablet) 0.5 mg PO BID [facility] Last Admin: 01/20/23 08:54 Dose: 0.5 mg Hydroxyzine HCl (Hydroxyzine Hcl 25 Mg Tablet) 25 mg PO Q6H PRN PRN Reason: Anxiety Magnesium Hydroxide (Milk Of Magnesia 30 Ml Oral.Susp) 30 ml PO DAILY PRN PRN Reason: Constipation Nicotine (Nicotine 14 Mg Patch.Td24) 14 mg TRANSDERMA DAILY [facility] Last Admin: 01/20/23 08:54 Dose: 14 mg Nicotine Polacrilex (Nicotine Polacrilex 2 Mg Gum) 2 mg BUCCAL Q2H PRN PRN Reason: Nicotine Cravings Olanzapine (Olanzapine 10 Mg Tablet) 10 mg PO BEDTIME [facility] Last Admin: 01/19/23 20:20 Dose: 10 mg Trazodone HCl (Trazodone Hcl 50 Mg Tablet) 50 mg PO BEDTIME MRX1 PRN PRN Reason: Insomnia Allergies Allergies Allergy/AdvReac Type Severity Reaction Status Date / Time bee venom protein (honey bee) Allergy Swelling Verified 01/18/23 21:01 Assessment & Plan Assessment & Plan (1) Schizophrenia, paranoid type: Status: Acute Code(s): F20.0 - Paranoid schizophrenia (2) Cocaine use disorder: Status: Acute Code(s): F14.10 - Cocaine abuse, uncomplicated Plan Patient is a 32 year old male with hx of Schizophrenia who presented to [facility] ER secondary to increased auditory hallucinations secondary to cocaine use and medication non-adherence. Plan: CV Pt signed 3 day Start: Zyprexa 10mg PO bedtime, Abilify 5mg PO daily, Cogentin 0.5mg PO BID Possibly referral to respite? Referral to substance abuse program? Set up appointment to follow up with his outpatient provider. 01/20: Pt presents with organized thought process; no longer tangential. Patient reports feeling better today; pt stated, the medications helped with my voices. I plan on going back to [place] after here . Showered. Social with peers. denies SI/HI/VH/AH. Continue current tx plan. Patient educated on: diagnosis, medication risk/benefits, substance abuse and therapeutic strategies Informed Consent: understands Reason for continued inpatient stay Substantial Risk for: med/psych decompensation Time Spent With Patient Time: Total time managing care of this patient today _30___ minutes.
[2023-01-20 12:00] VITALS: BP 138/94; PULSE 93; RESP 18; O2SAT 98
[2023-01-20 16:00] VITALS: BP 130/63; PULSE 104; RESP 18; O2SAT 98
[2023-01-20 20:00] VITALS: BP 144/85; PULSE 97; TEMP 37; O2SAT 99
[2023-01-20] MEDS: OLANZapine 10 MG TABLET PO (20:55)
[2023-01-21] VITALS: BP 140/68; PULSE 98; RESP 16; TEMP 36.6; O2SAT 97
--- NOTE | 2023-01-21 | ECG_ITS ---
Test Reason : cocaine Blood Pressure : / mmHG Vent. Rate : 082 BPM Atrial Rate : 082 BPM P-R Int : 166 ms QRS Dur : 092 ms QT Int : 336 ms P-R-T Axes : 051 059 036 degrees QTc Int : 392 ms Normal sinus rhythm Normal ECG No previous ECGs available Referred By: Izaiah Dexter Electronically Signed By:DEANA LOCKETT MD
[2023-01-21] MEDS: Benztropine Mesylate 0.5 MG TABLET PO ×2 (08:25→20:56)
[2023-01-21] MEDS: ARIPiprazole 5 MG TABLET PO (08:25)
[2023-01-21] MEDS: Nicotine 14 MG PATCH.TD24 TRANSDERMA (08:25)
--- NOTE | 2023-01-21 09:58 | HO.PSYCHPN ---
Subjective Subjective Date of Service: 01/21/23 Reason For Visit: F28 Subjective Notes: 3 Day Interim History: Reviewed in team and . Patient reports feeling good today; pt stated, I feel better than when I came in here, the voices went away . Reports sleeping well. denies SI/HI/VH/AH. Medication Compliance: Yes Side effects from medications: No Attending Groups: Intermittent Review of Systems Constitutional: Reports as per HPI Eyes: Reports as per HPI Reports as per HPI Cardiovascular: Reports as per HPI Respiratory: Reports as per HPI Gastrointestinal: Reports as per HPI Genitourinary: Reports as per HPI Musculoskeletal: Reports as per HPI Skin/Breast: Reports as per HPI Reports as per HPI Psychiatric: Reports as per HPI Endocrine: Reports as per HPI Hematologic/Lymphatic: Reports as per HPI Allergic/Immunologic: Reports as per HPI Mental Status Exam Mental Status Exam Narrative: Pt is alert and oriented; behavior is cooperative, friendly and calm; dressed in casual attire; mood is described as good ; eye contact appropriate; Speech is normal rate, volume and prosody and not pressured; no psychomotor agitation/retardation present; thought process is organized and goal directed; Thought content is on tx; otherwise pertinent to relevant topics and without any delusional content, paranoid ideations or grandiosity; denies SI/HI. There is no evidence of perceptual disturbance. Patients insight and judgment are fair. Diagnostics Vital Signs (24Hr): Vital Signs - 24 hr 01/20/23 12:00 01/20/23 16:00 01/20/23 20:00 Temperature 98.6 F Pulse Rate 93 104 H 97 Respiratory Rate 18 18 Blood Pressure 138/94 H 130/63 144/85 H Pulse Oximetry 98 98 99 Oxygen Delivery Method Room Air Room Air Room Air 01/21/23 00:00 Temperature 98 F Pulse Rate 98 Respiratory Rate 16 Blood Pressure 140/68 H Pulse Oximetry 97 Oxygen Delivery Method Room Air Labs 01/19/23 08:40 Medications Medications Current Medications Acetaminophen (Acetaminophen 325 Mg Tablet) 650 mg PO Q6H PRN PRN Reason: Headache/Pain Mild Scale (1-3) Al Hydroxide/Mg Hydroxide (Magnesium Hydrox/Alum Hydrox 30 Ml Oral.Susp) 30 ml PO Q6H PRN PRN Reason: Heartburn/Nausea Aripiprazole (Aripiprazole 5 Mg Tablet) 5 mg PO DAILY [facility] Last Admin: 01/21/23 08:25 Dose: 5 mg Benztropine Mesylate (Benztropine Mesylate 0.5 Mg Tablet) 0.5 mg PO BID [facility] Last Admin: 01/21/23 08:25 Dose: 0.5 mg Hydroxyzine HCl (Hydroxyzine Hcl 25 Mg Tablet) 25 mg PO Q6H PRN PRN Reason: Anxiety Magnesium Hydroxide (Milk Of Magnesia 30 Ml Oral.Susp) 30 ml PO DAILY PRN PRN Reason: Constipation Nicotine (Nicotine 14 Mg Patch.Td24) 14 mg TRANSDERMA DAILY [facility] Last Admin: 01/21/23 08:25 Dose: 14 mg Nicotine Polacrilex (Nicotine Polacrilex 2 Mg Gum) 2 mg BUCCAL Q2H PRN PRN Reason: Nicotine Cravings Olanzapine (Olanzapine 10 Mg Tablet) 10 mg PO BEDTIME [facility] Last Admin: 01/20/23 20:55 Dose: 10 mg Trazodone HCl (Trazodone Hcl 50 Mg Tablet) 50 mg PO BEDTIME MRX1 PRN PRN Reason: Insomnia Allergies Allergies Allergy/AdvReac Type Severity Reaction Status Date / Time bee venom protein (honey bee) Allergy Swelling Verified 01/18/23 21:01 Assessment & Plan Assessment & Plan (1) Schizophrenia, paranoid type: Status: Acute Code(s): F20.0 - Paranoid schizophrenia (2) Cocaine use disorder: Status: Acute Code(s): F14.10 - Cocaine abuse, uncomplicated Plan Patient is a 32 year old male with hx of Schizophrenia who presented to [facility] ER secondary to increased auditory hallucinations secondary to cocaine use and medication non-adherence. Plan: CV Pt signed 3 day Start: Zyprexa 10mg PO bedtime, Abilify 5mg PO daily, Cogentin 0.5mg PO BID Possibly referral to respite? Referral to substance abuse program? Set up appointment to follow up with his outpatient provider. 01/20: Pt presents with organized thought process; no longer tangential. Patient reports feeling better today; pt stated, the medications helped with my voices. I plan on going back to [place] after here . Showered. Social with peers. denies SI/HI/VH/AH. Continue current tx plan. 01/21: Patient reports feeling good today; pt stated, I feel better than when I came in here, the voices went away . Reports sleeping well. denies SI/HI/VH/AH. Continue current tx plan. Patient educated on: diagnosis, medication risk/benefits and therapeutic strategies Informed Consent: understands Reason for continued inpatient stay Substantial Risk for: med/psych decompensation Time Spent With Patient Time: Total time managing care of this patient today _30___ minutes.
[2023-01-21 10:36] VITALS: BP 122/76; PULSE 94; RESP 20; TEMP 36.5; O2SAT 98
[2023-01-21 14:13] VITALS: BP 155/89; PULSE 72
[2023-01-21 16:00] VITALS: BP 145/82; PULSE 84
[2023-01-21 20:05] VITALS: BP 133/78; PULSE 89; RESP 16; TEMP 36.6; O2SAT 96
[2023-01-21] MEDS: OLANZapine 10 MG TABLET PO (20:56)
[2023-01-22] VITALS: RESP 16
[2023-01-22 04:00] VITALS: RESP 16
[2023-01-22 08:00] VITALS: BP 124/82; PULSE 94; TEMP 36.6; O2SAT 99
[2023-01-22] MEDS: ARIPiprazole 5 MG TABLET PO (08:19)
[2023-01-22] MEDS: Nicotine 14 MG PATCH.TD24 TRANSDERMA (08:19)
[2023-01-22] MEDS: Benztropine Mesylate 0.5 MG TABLET PO ×2 (08:19→20:36)
[2023-01-22 12:00] VITALS: BP 133/75; PULSE 91; RESP 16; TEMP 36.7; O2SAT 96
[2023-01-22] MEDS: Benzocaine 20 % Oral Gel 9 GM TUBE 1 APPL MUCOUS MEM (14:17)
--- NOTE | 2023-01-22 20:06 | P.PNPSI_ITS ---
Subjective Subjective Date of Service: 01/22/23 Reason For Visit: F28 Interim History: calm, pleasant. reports his mood is euthymic. denies safety concerns. per staff, 3-day up tuesday. isolative, napping. denies all psych Sx. +RIS. Mental Status Exam Mental Status Exam Narrative: dressed in street clothes. adequate grooming and hygiene. cooperative. no PMA/PMR. speech decr in amount, nml rate, nml loudness, nml latency. thoughts organized, logical. affect constricted, normo-intense, non-labile. mood pretty fair. it's OK denies SI/SIBI/HI/AVH. Diagnostics Vital Signs (24Hr): Vital Signs - 24 hr 01/22/23 00:00 01/22/23 04:00 01/22/23 08:00 Temperature 97.9 F Pulse Rate 94 Respiratory Rate 16 16 Blood Pressure 124/82 Pulse Oximetry 99 Oxygen Delivery Method Room Air 01/22/23 12:00 Temperature 98.1 F Pulse Rate 91 Respiratory Rate 16 Blood Pressure 133/75 Pulse Oximetry 96 Oxygen Delivery Method Room Air Labs 01/19/23 08:40 Medications Medications Current Medications Acetaminophen (Acetaminophen 325 Mg Tablet) 650 mg PO Q6H PRN PRN Reason: Headache/Pain Mild Scale (1-3) Al Hydroxide/Mg Hydroxide (Magnesium Hydrox/Alum Hydrox 30 Ml Oral.Susp) 30 ml PO Q6H PRN PRN Reason: Heartburn/Nausea Aripiprazole (Aripiprazole 5 Mg Tablet) 5 mg PO DAILY [facility] Last Admin: 01/22/23 08:19 Dose: 5 mg Benzocaine (Benzocaine 20 % Oral Gel 9 Gm Tube) 1 appl MUCOUS MEM QID PRN; Protocol PRN Reason: tooth pain Last Admin: 01/22/23 14:17 Dose: 1 appl Benztropine Mesylate (Benztropine Mesylate 0.5 Mg Tablet) 0.5 mg PO BID [facility] Last Admin: 01/22/23 08:19 Dose: 0.5 mg Hydroxyzine HCl (Hydroxyzine Hcl 25 Mg Tablet) 25 mg PO Q6H PRN PRN Reason: Anxiety Magnesium Hydroxide (Milk Of Magnesia 30 Ml Oral.Susp) 30 ml PO DAILY PRN PRN Reason: Constipation Nicotine (Nicotine 14 Mg Patch.Td24) 14 mg TRANSDERMA DAILY [facility] Last Admin: 01/22/23 08:19 Dose: 14 mg Nicotine Polacrilex (Nicotine Polacrilex 2 Mg Gum) 2 mg BUCCAL Q2H PRN PRN Reason: Nicotine Cravings Olanzapine (Olanzapine 10 Mg Tablet) 10 mg PO BEDTIME [facility] Last Admin: 01/21/23 20:56 Dose: 10 mg Trazodone HCl (Trazodone Hcl 50 Mg Tablet) 50 mg PO BEDTIME MRX1 PRN PRN Reason: Insomnia Allergies Allergies Allergy/AdvReac Type Severity Reaction Status Date / Time bee venom protein (honey bee) Allergy Swelling Verified 01/18/23 21:01 Assessment & Plan Assessment & Plan (1) Schizophrenia, paranoid type: Status: Acute Code(s): F20.0 - Paranoid schizophrenia (2) Cocaine use disorder: Status: Acute Code(s): F14.10 - Cocaine abuse, uncomplicated Plan Patient is a 32 year old male with hx of Schizophrenia who presented to [facility] ER secondary to increased auditory hallucinations secondary to cocaine use and medication non-adherence. Plan: CV Pt signed 3 day Start: Zyprexa 10mg PO bedtime, Abilify 5mg PO daily, Cogentin 0.5mg PO BID Possibly referral to respite? Referral to substance abuse program? Set up appointment to follow up with his outpatient provider. 01/20: Pt presents with organized thought process; no longer tangential. Patient reports feeling better today; pt stated, the medications helped with my voices. I plan on going back to [place] after here . Showered. Social with peers. denies SI/HI/VH/AH. Continue current tx plan. 01/21: Patient reports feeling good today; pt stated, I feel better than when I came in here, the voices went away . Reports sleeping well. denies SI/HI/VH/AH. Continue current tx plan. 01/22: reports AH have resolved, feeling well, anticipating discharge tuesday. Reason for continued inpatient stay Substantial Risk for: rapid decompensation Time Spent With Patient Time: Total time managing care of this patient today ____ minutes.
[2023-01-22 20:30] VITALS: BP 148/58; PULSE 81; RESP 15; TEMP 36.7; O2SAT 98
[2023-01-22] MEDS: OLANZapine 10 MG TABLET PO (20:36)
[2023-01-23 07:15] VITALS: BP 119/77; PULSE 89; RESP 24; TEMP 36.2; O2SAT 97
[2023-01-23] MEDS: Benztropine Mesylate 0.5 MG TABLET PO ×2 (08:30→20:38)
[2023-01-23] MEDS: ARIPiprazole 5 MG TABLET PO (08:30)
[2023-01-23] MEDS: Nicotine 14 MG PATCH.TD24 TRANSDERMA (08:31)
[2023-01-23] MEDS: Nicotine Polacrilex 2 MG GUM BUCCAL (17:12)
[2023-01-23 19:30] VITALS: BP 134/82; PULSE 87; RESP 16; TEMP 36.8; O2SAT 99
[2023-01-23] MEDS: OLANZapine 10 MG TABLET PO (20:38)
--- NOTE | 2023-01-23 20:51 | P.PNPSI_ITS ---
Subjective Subjective Date of Service: 01/23/23 Reason For Visit: F28 Interim History: calm, cooperative, pleasant. planning for discharge tomorrow. mood OK, no safety concerns. per staff, +RIS NOC. overly bright. Mental Status Exam Mental Status Exam Narrative: dressed in street clothes. adequate grooming and hygiene. cooperative. no PMA/PMR. speech nml in amount, nml rate, nml loudness, nml latency. thoughts organized, logical. affect full range, normo-intense, non-labile. mood OK denies SI/SIBI/HI/AVH. Diagnostics Vital Signs (24Hr): Vital Signs - 24 hr 01/23/23 07:15 01/23/23 19:30 Temperature 97.1 F 98.3 F Pulse Rate 89 87 Respiratory Rate 24 H 16 Blood Pressure 119/77 134/82 Pulse Oximetry 97 99 Oxygen Delivery Method Room Air Room Air Labs 01/19/23 08:40 Medications Medications Current Medications Acetaminophen (Acetaminophen 325 Mg Tablet) 650 mg PO Q6H PRN PRN Reason: Headache/Pain Mild Scale (1-3) Al Hydroxide/Mg Hydroxide (Magnesium Hydrox/Alum Hydrox 30 Ml Oral.Susp) 30 ml PO Q6H PRN PRN Reason: Heartburn/Nausea Aripiprazole (Aripiprazole 5 Mg Tablet) 5 mg PO DAILY [facility] Last Admin: 01/23/23 08:30 Dose: 5 mg Benzocaine (Benzocaine 20 % Oral Gel 9 Gm Tube) 1 appl MUCOUS MEM QID PRN; Protocol PRN Reason: tooth pain Last Admin: 01/22/23 14:17 Dose: 1 appl Benztropine Mesylate (Benztropine Mesylate 0.5 Mg Tablet) 0.5 mg PO BID [facility] Last Admin: 01/23/23 20:38 Dose: 0.5 mg Hydroxyzine HCl (Hydroxyzine Hcl 25 Mg Tablet) 25 mg PO Q6H PRN PRN Reason: Anxiety Magnesium Hydroxide (Milk Of Magnesia 30 Ml Oral.Susp) 30 ml PO DAILY PRN PRN Reason: Constipation Nicotine (Nicotine 14 Mg Patch.Td24) 14 mg TRANSDERMA DAILY [facility] Last Admin: 01/23/23 08:31 Dose: 14 mg Nicotine Polacrilex (Nicotine Polacrilex 2 Mg Gum) 2 mg BUCCAL Q2H PRN PRN Reason: Nicotine Cravings Last Admin: 01/23/23 17:12 Dose: 2 mg Olanzapine (Olanzapine 10 Mg Tablet) 10 mg PO BEDTIME [facility] Last Admin: 01/23/23 20:38 Dose: 10 mg Trazodone HCl (Trazodone Hcl 50 Mg Tablet) 50 mg PO BEDTIME MRX1 PRN PRN Reason: Insomnia Allergies Allergies Allergy/AdvReac Type Severity Reaction Status Date / Time bee venom protein (honey bee) Allergy Swelling Verified 01/18/23 21:01 Assessment & Plan Assessment & Plan (1) Schizophrenia, paranoid type: Status: Acute Code(s): F20.0 - Paranoid schizophrenia (2) Cocaine use disorder: Status: Acute Code(s): F14.10 - Cocaine abuse, uncomplicated Plan Patient is a 32 year old male with hx of Schizophrenia who presented to [facility] ER secondary to increased auditory hallucinations secondary to cocaine use and medication non-adherence. Plan: CV Pt signed 3 day Start: Zyprexa 10mg PO bedtime, Abilify 5mg PO daily, Cogentin 0.5mg PO BID Possibly referral to respite? Referral to substance abuse program? Set up appointment to follow up with his outpatient provider. 01/20: Pt presents with organized thought process; no longer tangential. Patient reports feeling better today; pt stated, the medications helped with my voices. I plan on going back to [place] after here . Showered. Social with peers. denies SI/HI/VH/AH. Continue current tx plan. 01/21: Patient reports feeling good today; pt stated, I feel better than when I came in here, the voices went away . Reports sleeping well. denies SI/HI/VH/AH. Continue current tx plan. 01/22: reports AH have resolved, feeling well, anticipating discharge tuesday. 01/23: same presentation. no change in mgmt. Reason for continued inpatient stay Substantial Risk for: inability to function and rapid decompensation Time Spent With Patient Time: Total time managing care of this patient today ____ minutes.
[2023-01-24] MEDS: Benztropine Mesylate 0.5 MG TABLET PO (08:22)
[2023-01-24] MEDS: ARIPiprazole 5 MG TABLET PO (08:22)
[2023-01-24] MEDS: Nicotine 14 MG PATCH.TD24 TRANSDERMA (08:22)
[2023-01-24 09:13] VITALS: BP 133/72; PULSE 82; RESP 18; TEMP 36.5; O2SAT 100
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
== END 2023-01-24 11:20 | disposition home or self-care (01) | DRG 885 ==
PROVIDERS: Psychiatry & Neurology Psychiatry; Admitting Provider Psychiatry & Neurology Psychiatry; Responsible Provider Registered Nurse; Visit Provider Psychiatry & Neurology Psychiatry
DX: F20.0 Paranoid schizophrenia (principal); F14.10 Cocaine abuse, uncomplicated; F17.210 Nicotine dependence, cigarettes, uncomplicated; Z71.6 Tobacco abuse counseling; Z79.899 Other long term (current) drug therapy
CPT/HCPCS: 36415; 80053; 80061; 93005

== ENCOUNTER → 2023-01-18 14:22 | Outpatient (BNV) | payer MEDICARE, MEDICAID, SELFPAY | PROVIDERS: Admitting Provider Psychiatry & Neurology Psychiatry; Responsible Provider Registered Nurse; Visit Provider Registered Nurse | DX: F20.0 Paranoid schizophrenia (principal); F14.10 Cocaine abuse, uncomplicated | CPT/HCPCS: 90792; 99231; 99239 ==

== ENCOUNTER → 2023-01-18 14:22 | Outpatient (BNV) | payer MEDICARE, SELFPAY | PROVIDERS: Admitting Provider Psychiatry & Neurology Psychiatry; Responsible Provider Registered Nurse; Visit Provider Nurse Practitioner Acute Care | DX: Z02.2 Encounter for examination for admission to residential institution (principal) | CPT/HCPCS: 99429 ==